=== PATIENT | female | born 1930 | race Caucasian/White ===

== ENCOUNTER 2017-08-09 10:45 | Inpatient (IN) | payer OTHER ==
[2017-08-09] MEDS ORDERED: ALBUTEROL SO4 2.5/IPRATROPIUM 0.5 INH SOL 3 ML VIAL.NEB. NEB ONE (10:50)
--- NOTE | 2017-08-09 11:01 | PDOC ---
History of Present Illness - General Stated Complaint: DIFFICULTY BREATHING Time Seen by Provider: 08/09/17 10:50 - History of Present Illness Initial Comments: 08/09/17 11:12 86 y.o. female with a PMH of CKD, HLD, HTN, Dementia, Bipolar Disorder, Diverticulosis was BIBEMS for respiratory distress from [place]. As per EMS patient saturating in 80's, bradycardic to 40's. NRB administered en route. At presentation VS: BP 224/62, HR 42, RR 26 - patient alert to name, non-verbal. Past History - Past Medical History Allergies/Adverse Reactions: Allergies Allergy/AdvReac Type Severity Reaction Status Date / Time codeine [Codeine] Allergy Verified 08/09/17 10:55 levofloxacin [From Levaquin] Allergy Verified 08/09/17 10:55 pentazocine lactate Allergy Verified 08/09/17 10:55 [From Talwin] Home Medications: Ambulatory Orders Acetaminophen [Tylenol -] 1,000 mg PO BID 08/09/17 Ascorbic Acid [Vitamin C] 500 mg PO DAILY 08/09/17 Calcium Carbonate [Oyster Shell Calcium] 500 mg PO BID 08/09/17 Cholecalciferol (Vitamin D3) [Vitamin D3] 1,000 unit PO DAILY 08/09/17 Divalproex Sodium 250 mg PO TID 08/09/17 Duloxetine HCl 60 mg PO DAILY 08/09/17 FENTANYL 25mcg PATCH [DURAGESIC 25mcg PATCH -] 75 mcg TD Q72D 08/09/17 Levothyroxine [Synthroid -] 50 mcg PO DAILY 08/09/17 Multivit with Minerals No.55 [Centrum Flavor Burst Adult] 1 each PO DAILY Nystatin Ointment [Mycostatin Ointment -] 1 applic TP TID 08/09/17 Omeprazole 40 mg PO DAILY 08/09/17 Polyethylene Glycol 3350 [Miralax (For Daily Use) -] 17 gm PO DAILY 08/09/17 Sennosides [Senna] 2 tab PO HS 08/09/17 CVA: Yes Dementia: Yes HTN: Yes Hypercholesterolemia: Yes - Surgical History Orthopedic Surgery: (ORIF RT ANKLE) - Immunization History Immunization Up to Date: Yes - Suicide/Smoking/Psychosocial Hx Smoking Status: No Smoking History: Never smoked Number of Cigarettes Smoked Daily: 0 Hx Alcohol Use: No Drug/Substance Use Hx: No Substance Use Type: None Review of Systems - Review of Systems Able to Perform ROS?: No *Physical Exam - Physical Exam General Appearance: Yes: Nourished, Obese HEENT: positive: EOMI, AASHISH Neck: positive: Trachea midline, Supple Respiratory/Chest: positive: Rapid RR, Other (Diffuse rales/rhonchi on anterior and posterior lung field) Cardiovascular: positive: S1, S2 Gastrointestinal/Abdominal: positive: Normal Bowel Sounds, Soft Extremity: positive: Normal Capillary Refill, Normal Inspection Integumentary: positive: Other (Stage 3 sacral decubitus ulcers - no appreciable erythema, edema, discharge) Neurologic: positive: Alert ED Treatment Course - LABORATORY CBC & Chemistry Diagram: 08/09/17 11:13 08/09/17 11:13 - RADIOLOGY Radiology Studies Ordered: Category Date Time Status CHEST X-RAY PORTABLE* [RAD] Stat Radiology 08/09/17 10:53 Ordered Medical Decision Making - Medical Decision Making 08/09/17 10:57 86 y.o. female presents from [facility] in respiratory distress. Patient fluid overloaded on PE (diffuse full body edema) will work-up as CHF exacerbation. As per [place] paperwork, patient DNR/DNI 08/09/17 11:09 SpO2 100% on BIPAP. bus driver/monitor shows wide QRS -- suspect Patient remains hypertensive (SBP 200's) and bradycardic 40's). Will give Ca -- suspect patient hyper K 2/2 CKD. Nitro drip initiated for BP. 08/09/17 11:34 Bedside echo shows B/L pleural effusion, no pericardial effusion, patient remains bradycardic with some response to Ca+ HR ranges 30-50. EKG shows HR 44 , diffuse NJ prolongation, flipped inverted T waves in aVL, aVR, poor R wave progession V1-V6. 08/09/17 11:39 Repeat BP 179/56. Patient remains yonatan in 30's -- will decrease nitro drip. Case d/w ICU and Patient's PMD Dr. Rivera. As per Dr. Rivera, patient has h/o bradycardic episodes but no pacemaker placement 2/2 to patient' s age. Patient has been on Hospice x2. 08/09/17 12:27 BP 194/98 -- will keep patient on Nitro drip pending Lasix; BNP 35,000 ( previous BNP 1178 in 2016). 08/09/17 12:37 Patient admitted to ICU. Will continue to monitor while in ED. ABG/VBG pending. Patient verbal - requests water, no active medical complaints. *DC/Admit/Observation/Transfer Diagnosis at time of Disposition: Hyperkalemia - Referrals - Patient Instructions - Post Discharge Activity
[2017-08-09] MEDS ORDERED: CALCIUM CHLORIDE 1 GM/10 ML *DISP.SYRIN IVPUSH ONE (11:06)
[2017-08-09] MEDS ORDERED: NITROGLYCERIN 25MG/D5W 250ML 25 MG/250 ML ML IVPB SCH (11:15)
[2017-08-09] MEDS: ALBUTEROL SO4 2.5/IPRATROPIUM 0.5 INH SOL 3 ML VIAL.NEB. NEB SCH ×4 (11:15→12:05)
[2017-08-09] MEDS ORDERED: CALCIUM CHLORIDE 1 GM/10 ML *DISP.SYRIN ONE ×2 (11:17→12:17)
[2017-08-09] MEDS ORDERED: NITROGLYCERIN 25MG/D5W 250ML 25 MG/250 ML ML IVPB ONE (11:17)
[2017-08-09 11:27] LABS: BASO % 0.7 % (0-2.0); EOS % 1.4 % (0-4.5); HEMATOCRIT 37.7 % (32.4-45.2); HEMOGLOBIN 12.2 GM/dL (10.7-15.3); LYMPH % 13.7 % (8-40); MCHC 32.4 g/dl (32.0-36.0); MEAN CELL VOLUME 95.8 fl (80-96); MEAN PLT VOLUME 7.8 fl (7.5-11.1); MONO % 4.7 % (3.8-10.2); NEUT % 79.5 % (42.8-82.8); PLATELET COUNT 289 K/MM3 (134-434); RBC 3.93 M/mm3 (3.60-5.2); RDW 14.5 % (11.6-15.6); WHITE BLOOD COUNT 7.2 K/mm3 (4.0-10.0)
[2017-08-09] MEDS ORDERED: FUROSEMIDE 40 MG/4 ML INJECTABLE VIAL ONE (11:31)
[2017-08-09] MEDS ORDERED: FUROSEMIDE 40 MG/4 ML INJECTABLE VIAL IVPUSH ONE (11:32)
[2017-08-09] MEDS ORDERED: VANCOMYCIN 1,000 MG in DEXTROSE 5%-WATER - 250 ML IVPB ONE (11:35)
[2017-08-09] MEDS ORDERED: PIPERACILLIN/TAZOB 3.375 GM 50 ML IVPB ONE (11:36)
--- NOTE | 2017-08-09 11:38 | PDOC ---
Attending Attestation - HPI HPI: 08/09/17 11:53 The patient is a 86 year old female, from [facility], with a significant past medical history of hypertension, hyperlipidemia, CVA, dementia, who presents to the emergency department with, shortness of breath. As per EMS, patient has a reported oxygen saturation in the 80s and bradycardic in the 40s bpm. EMS reports administering a NRB en route to the ED. Patient history limited secondary to clinical condition/ dementia. Allergies: codeine, levofloxacin, pentazocine lactate Primary Care Physician: Dr. Rivera Documentation prepared by Roman Perez, acting as medical affairs director for Theresa Prieto DO. - Physicial Exam PE: 08/09/17 11:58 GENERAL: +Moderate respiratory distress. Awake and alert. HEAD: No signs of trauma EYES: PERRLA, EOMI, sclera anicteric, conjunctiva clear ENT: Auricles normal inspection, hearing grossly normal, nares patent, oropharynx clear without exudates. Moist mucosa NECK: Normal ROM, supple, no lymphadenopathy, JVD, or masses LUNGS: +Diffuse rhonchi and rales. HEART: +Bradycardia. Regular rhythm, normal S1 and S2, no murmurs, rubs or gallops ABDOMEN: Soft, nontender, normoactive bowel sounds. No guarding, no rebound. No masses EXTREMITIES: +Diffusely edematous. Normal range of motion. No clubbing or cyanosis. No cords, erythema, or tenderness NEUROLOGICAL: Awake, responds to name. Pleasantly demented. SKIN: Warm, Dry, no rashes or lesions noted. <Roman Perez - Last Filed: 08/09/17 12:26> - Resident Resident Name: Génesis Trejo - ED Attending Attestation I have performed the following: I have examined & evaluated the patient, The case was reviewed & discussed with the resident, I agree w/resident's findings & plan, Exceptions are as noted - Critical Care Time Total Critical Care Time: 45 Critical Care Statement: The care of this patient involved high complexity decision making to prevent further life threatening deterioration of the patient 's condition and/or to evaluate & treat vital organ system(s) failure or risk of failure. - Medical Decision Making 08/09/17 11:38 I, Dr. Theresa Prieto DO, attest that this document has been prepared under my direction and personally reviewed by me in its entirety. I further attest, that it accurately reflects all work, treatment, procedures and medical decision -making performed by me. 08/09/17 11:40 a/p: 86yo female presents from [facility] for eval of resp distress and HTN -pt with rales/rhonchi -concern for new onset CHF -bedside echo shows b/l large pleural effusion with atelectatic lung -yonatan on exam -generalized anasarca -will need lasix, nitro gtt, bipap, admission -Pt from [facility], however PMD Dr. Rivera - call placed to franco -call placed to Eric -Pt with DNR/DNI paperwork on the chart -case discussed with Dr. Reyes - requests consult go to [facility] cards 08/09/17 11:44 case discussed with ANIMAL SHELTER SUPERVISOR Drake Carver from ICU - accepts pt to ICU 08/09/17 11:45 cultures, abx ordered and started 08/09/17 11:45 pt with hx of dementia - unable to provide any hx 08/09/17 12:[address] Rivera - states hx of LIZZY, hx of neurogenic bladder , resp distress hx - yonatan hx - held off on pacer. Pt with hx of being on hospice twice, off hospice at this time 08/09/17 13:02 call placed to [facility] for admission - accepted for admission to ICU <Theresa Prieto - Last Filed: 08/09/17 13:02> Heart Score/ECG Review - ECG Intrepretation Comment:: 08/09/17 11:45 sinus yonatan at 44, 1st degree av block, interventricular conduction delay <Theresa Prieto - Last Filed: 08/09/17 13:02>
[2017-08-09 11:39] LABS: INR 0.97 (0.82-1.09)
[2017-08-09] MEDS ORDERED: PIPERACILLIN/TAZOB 3.375 GM 3.375 GM/50 ML BAG IVPB ONE (11:46)
[2017-08-09 11:54] LABS: ALBUMIN 2.2 g/dl (3.4-5.0); ALK PHOS 133 U/L (45-117); ANION GAP 7 (8-16); BILIRUBIN,TOTAL 0.2 mg/dL (0.2-1.0); BLOOD UREA NITROGEN 54 mg/dL (7-18); CALCIUM 8.3 mg/dL (8.5-10.1); CHLORIDE 108 mmol/L (98-107); CO2 28 mmol/L (21-32); GLUCOSE,RANDOM 142 mg/dL (74-106); POTASSIUM 5.8 mmol/L (3.5-5.1); SGOT/AST 7 U/L (15-37); SGPT/ALT 7 U/L (12-78); SODIUM 143 mmol/L (136-145)
[2017-08-09] MEDS ORDERED: CALCIUM CHLORIDE 1 GM/10 ML *DISP.SYRIN IVPB ONE (12:03)
[2017-08-09] MEDS ORDERED: INSULIN REGULAR HUMAN 100 UNITS/ML *VIAL IVPUSH ONE (12:05)
[2017-08-09] MEDS ORDERED: ALBUTEROL SO4 0.5 % INH SOLN 2.5 MG/0.5 ML VIAL.NEB. NEB ONE (12:07)
[2017-08-09 12:08] LABS: N-TERMINAL BNP 35850.09 pg/ml (5-450)
[2017-08-09] MEDS ORDERED: DEXTROSE 50%-WATER - 25 GM/50 ML VIAL IVPUSH ONE (12:09)
[2017-08-09 12:26] LABS: URINE APPEARANCE TURBID; URINE BILIRUBIN NEGATIVE (<2.0 mg/dL); URINE BLOOD 1+ (NEGATIVE); URINE COLOR YELLOW; URINE GLUCOSE (UA) 1+ (NEGATIVE); URINE KETONE TRACE (NEGATIVE); URINE NITRITE NEGATIVE (NEGATIVE); URINE UROBILINOGEN NEGATIVE mg/dL (0.2-1.0)
[2017-08-09 12:30] LABS: URINE LEUK ESTERASE 2+ (NEGATIVE); URINE PROTEIN 2+ (NEGATIVE)
[2017-08-09 12:32] LABS: EPI CELLS FEW /HPF (FEW); URINE BACTERIA MANY /hpf (NONE SEEN); URINE MUCUS RARE
[2017-08-09] MEDS ORDERED: INSULIN REGULAR HUMAN 100 UNITS/ML *VIAL ONE (12:46)
[2017-08-09] MEDS ORDERED: DEXTROSE 50%-WATER 25 GM/50 ML DISP.SYRIN ONE (12:46)
--- NOTE | 2017-08-09 13:22 | HP ---
CHIEF COMPLAINT: PCP: HISTORY OF PRESENT ILLNESS: 86 year-old [place] female resident with a PMH significant for HTN, HLD, bradycardia/ heart block, NIDDM, seizure disorder, bipolar diosorder, dementia largely bed bound, and chronic sacral wound. Brought to ED by EMS for SOB, O2 sat in 80s, and bradycardic to 40s. In ED, BP 220/104 with pulmonary edema and large bilateral effusions. Started on BiPAP, nitro drip, Lasix given, empiric antibiotics started. Transferred to ICU. ER course was notable for: (1) BP 220/104, HR 40s, 88% on NRB (2) BiPAP, lasix, nitro drip (3) K 5.8 given calcium, insulin, glucose (4) CXR: bilateral effusions with possible basilar infiltrates (5) Vanc x 1; Zosyn x 1 Recent Travel: No PAST MEDICAL HISTORY: Hypertension Hyperlipidemia Bradycardia/Heart Block NIDDM Seizure Disorder Bipolar Disorder Dementia Chronic Sacral Wound PAST SURGICAL HISTORY: ORIF Right Ankle Social History: Smoking: never Alcohol: no Drugs: no Family History: non-contributory Allergies codeine [Codeine] Allergy (Verified 08/09/17 10:55) levofloxacin [From Levaquin] Allergy (Verified 08/09/17 10:55) pentazocine lactate [From Talwin] Allergy (Verified 08/09/17 10:55) HOME MEDICATIONS: Home Medications Medication Instructions Recorded Acetaminophen [Tylenol -] 1,000 mg PO BID 08/09/17 Ascorbic Acid [Vitamin C] 500 mg PO DAILY 08/09/17 Calcium Carbonate [Oyster Shell 500 mg PO BID 08/09/17 Calcium] Cholecalciferol (Vitamin D3) 1,000 unit PO DAILY 08/09/17 [Vitamin D3] Divalproex Sodium 250 mg PO TID 08/09/17 Duloxetine HCl 60 mg PO DAILY 08/09/17 FENTANYL 25mcg PATCH [DURAGESIC 75 mcg TD Q72D 08/09/17 25mcg PATCH -] Levothyroxine [Synthroid -] 50 mcg PO DAILY 08/09/17 Multivit with Minerals No.55 1 each PO DAILY 08/09/17 [Centrum Flavor Burst Adult] Nystatin Ointment [Mycostatin 1 applic TP TID 08/09/17 Ointment -] Omeprazole 40 mg PO DAILY 08/09/17 Polyethylene Glycol 3350 [Miralax 17 gm PO DAILY 08/09/17 (For Daily Use) -] Sennosides [Senna] 2 tab PO HS 08/09/17 REVIEW OF SYSTEMS Unable to obtain due to patient's clinical condition and dementia PHYSICAL EXAMINATION Vital Signs - 24 hr 08/09/17 08/09/17 08/09/17 10:56 11:40 11:50 Temperature Pulse Rate 43 L Pulse Rate [ Apical] Respiratory 26 H Rate Blood Pressure 224/62 Blood Pressure [Left Arm] O2 Sat by Pulse 89 L 100 99 Oximetry (%) 08/09/17 12:42 Temperature 97.8 F Pulse Rate Pulse Rate [ 42 L Apical] Respiratory 22 Rate Blood Pressure Blood Pressure 179/65 [Left Arm] O2 Sat by Pulse 99 Oximetry (%) GENERAL/NEURO: Awake, on BiPAP, turns to voice, does not answer questions. HEAD: Normal with no signs of trauma. EYES: Pupils equal, round and reactive to light LUNGS: Diffuse rales HEART: Regular rate and rhythm, S1, S2 ABDOMEN: Soft, nontender, not distended, normoactive bowel sounds, no guarding, no rebound UPPER EXTREMITIES: 2+ pulses, warm, well-perfused. 3+ edema LOWER EXTREMITIES: 2+ pulses, warm, well-perfused. No calf tenderness. 4+edema Laboratory Results - last 24 hr 08/09/17 08/09/17 08/09/17 11:13 11:13 11:13 WBC 7.2 D RBC 3.93 Hgb 12.2 Hct 37.7 MCV 95.8 MCH 31.0 MCHC 32.4 RDW 14.5 D Plt Count 289 MPV 7.8 Neutrophils % 79.5 Lymphocytes % 13.7 D Monocytes % 4.7 Eosinophils % 1.4 Basophils % 0.7 PT with INR INR Sodium 143 Potassium 5.8 H Chloride 108 H Carbon Dioxide 28 Anion Gap 7 L BUN 54 H Creatinine 2.0 H Creat Clearance w eGFR 23.74 Random Glucose 142 H Lactic Acid 1.3 Calcium 8.3 L Magnesium 2.0 Total Bilirubin 0.2 D AST 7 L ALT 7 L Alkaline Phosphatase 133 H Creatine Kinase Troponin I B-Natriuretic Peptide 62494.09 H Total Protein 6.0 L Albumin 2.2 L Urine Color Urine Appearance Urine pH Ur Specific [place] Urine Protein Urine Glucose (UA) Urine Ketones Urine Blood Urine Nitrite Urine Bilirubin Urine Urobilinogen Ur Leukocyte Esterase Urine WBC (Auto) Urine RBC (Auto) Ur Epithelial Cells Urine Bacteria Urine Mucus Blood Type Antibody Screen 08/09/17 08/09/17 08/09/17 11:14 11:14 11:14 WBC RBC Hgb Hct MCV MCH MCHC RDW Plt Count MPV Neutrophils % Lymphocytes % Monocytes % Eosinophils % Basophils % PT with INR 11.00 INR 0.97 Sodium Potassium Chloride Carbon Dioxide Anion Gap BUN Creatinine Creat Clearance w eGFR Random Glucose Lactic Acid Calcium Magnesium Total Bilirubin AST ALT Alkaline Phosphatase Creatine Kinase 41 Troponin I 0.03 B-Natriuretic Peptide Total Protein Albumin Urine Color Urine Appearance Urine pH Ur Specific [place] Urine Protein Urine Glucose (UA) Urine Ketones Urine Blood Urine Nitrite Urine Bilirubin Urine Urobilinogen Ur Leukocyte Esterase Urine WBC (Auto) Urine RBC (Auto) Ur Epithelial Cells Urine Bacteria Urine Mucus Blood Type B NEGATIVE Antibody Screen Negative 08/09/17 12:10 WBC RBC Hgb Hct MCV MCH MCHC RDW Plt Count MPV Neutrophils % Lymphocytes % Monocytes % Eosinophils % Basophils % PT with INR INR Sodium Potassium Chloride Carbon Dioxide Anion Gap BUN Creatinine Creat Clearance w eGFR Random Glucose Lactic Acid Calcium Magnesium Total Bilirubin AST ALT Alkaline Phosphatase Creatine Kinase Troponin I B-Natriuretic Peptide Total Protein Albumin Urine Color Yellow Urine Appearance Turbid Urine pH 5.0 D Ur Specific [place] 1.025 Urine Protein 2+ H Urine Glucose (UA) 1+ H Urine Ketones Trace H Urine Blood 1+ H Urine Nitrite Negative Urine Bilirubin Negative Urine Urobilinogen Negative Ur Leukocyte Esterase 2+ H Urine WBC (Auto) 991 Urine RBC (Auto) 57 Ur Epithelial Cells Few Urine Bacteria Many Urine Mucus Rare Blood Type Antibody Screen ASSESSMENT/PLAN: 86 year-old [place] female resident with a PMH significant for HTN, HLD, bradycardia/ heart block, NIDDM, seizure disorder, bipolar diosorder, dementia, and chonic sacral wound. Admitted for respiratory failure, hypertensive emergency, acute heart failure. Respiratory failure Pulmonary edema r/o pneumonia --CXR: bilateral pleural effusions with basilar atelectasis v. infiltrates --BiPAP support --Lasix --empiric Zosyn --duonebs Acute heart failure --BNP 35,850, pleural effusions, significant upper and lower extremity edema --Lasix IV 40mg BID --echo ordered --cardiology following Hypertensive emergency --nitro drip --avoid AV merle blocking agents Bradycardia/Heart Block --previous ED admission for complete heart block, sent to [facility]; decision made not to place PPM consitent with goals of care Acute on chronic kidney disease --Cr 2.0 --renal dose meds Hyperkalemia, improved --K 5.89-->5.2 UTI --WBCs 991 --empiric Zosyn NIDDM --A1C pending Seizure disorder --continue depakote Bipolar Disorder Dementia --continue Cymbalta Hypothyroidism --continue levothyroxine --check TSH Dispo: patient has previously been on hospice. Rug Cleaning Supervisor ICE CREAM MACHINE OPERATOR Mehul spoke with HCP Sayra Issa: I was able to speak to Sayra Issa HCP and discussed the case and per previous goals of care discussion patient is DNR/DNI with no aggressive measures: no central lines, thoracentesiss, dialysis, PPM etc. We will cont to medically manage Ms. Garay's medical conditions but should she deteriorate we would focus on comfort. Visit type - Emergency Visit Emergency Visit: Yes ED Registration Date: 08/09/17 Care time: The patient presented to the Emergency Department on the above date and was hospitalized for further evaluation of their emergent condition. - New Patient This patient is new to me today: Yes Date on this admission: 08/10/17 - Critical Care Critical Care patient: Yes Total Critical Care Time (in minutes): 45 Critical Care Statement: The care of this patient involved high complexity decision making to prevent further life threatening deterioration of the patient 's condition and/or to evaluate & treat vital organ system(s) failure or risk of failure. Hospitalist Screening - Colonoscopy Questionnaire Colonoscopy Questionnaire: Colonoscopy Questionnaire - Patient: 50 - 75 years old and never had a screening colonoscopy: No History of colon or rectal polyps, or CA: No History of IBD, Crohn's disease or UC: No History of abdominal radiation therapy as a child: No - Relative: 1 with colon or rectal CA, or polyps at age 60 or younger: Unknown Colon or rectal CA diagnosed at age 45 or younger: Unknown Multiple relatives with colon or rectal CA: Unknown - Outcome: Screening Result: Negative Screen
--- NOTE | 2017-08-09 13:44 | CONSULT ---
Consult Consult Specialty:: CCM/Pulm Reason for Consultation:: Hypertensive emergency, pulmonary edema, hypoxia, LIZZY - History of Present Illness Chief Complaint: hypoxia History of Present Illness: This is a 86 yo demented, largely bed bound NHR with CKD, HLD, HTN who presented to ED for bradycardia (hr 33-40) and hypoxia found to have hypertensive emergency (BP: 220/104) which pulmonary edema and large bilateral effusions. In the ED she initially on NRB w/ sat 88% and she was placed on BiPAP given lasix and nitroglycerin. She received calcium for hyperkalemia. CXR with effusion +/- pneumonia. ABX started for HCAP: zosyn and vanco. Labs significant for SCr 2.0, BNP 35k, (+) u/a: LE. Cardiology was consulted. Patient transferred to ICU for continued care. - History Source History Provided By: Medical Record Limitations to Obtaining History: Dementia - Past Medical History HR CLERK: Yes: Dementia Cardio/Vascular: Yes: HTN Gastrointestinal: Yes: Constipation, Diverticulitis Renal/: Yes: Neurogenic Bladder, UTI Psych: Yes: Bipolar Musculoskeletal: Yes: Chronic low back pain Endocrine: Yes: Diabetes Mellitus - Alcohol/Substance Use Hx Alcohol Use: No - Smoking History Smoking history: Never smoked Have you smoked in the past 12 months: No Aproximately how many cigarettes per day: 0 - Social History Usual Living Arrangement: Jail Home Medications - Allergies Allergies/Adverse Reactions: Allergies Allergy/AdvReac Type Severity Reaction Status Date / Time codeine [Codeine] Allergy Verified 08/09/17 10:55 levofloxacin [From Levaquin] Allergy Verified 08/09/17 10:55 pentazocine lactate Allergy Verified 08/09/17 10:55 [From Talwin] - Home Medications Home Medications: Ambulatory Orders Acetaminophen [Tylenol -] 1,000 mg PO BID 08/09/17 Ascorbic Acid [Vitamin C] 500 mg PO DAILY 08/09/17 Calcium Carbonate [Oyster Shell Calcium] 500 mg PO BID 08/09/17 Cholecalciferol (Vitamin D3) [Vitamin D3] 1,000 unit PO DAILY 08/09/17 Divalproex Sodium 250 mg PO TID 08/09/17 Duloxetine HCl 60 mg PO DAILY 08/09/17 FENTANYL 25mcg PATCH [DURAGESIC 25mcg PATCH -] 75 mcg TD Q72D 08/09/17 Levothyroxine [Synthroid -] 50 mcg PO DAILY 08/09/17 Multivit with Minerals No.55 [Centrum Flavor Burst Adult] 1 each PO DAILY Nystatin Ointment [Mycostatin Ointment -] 1 applic TP TID 08/09/17 Omeprazole 40 mg PO DAILY 08/09/17 Polyethylene Glycol 3350 [Miralax (For Daily Use) -] 17 gm PO DAILY 08/09/17 Sennosides [Senna] 2 tab PO HS 08/09/17 Family Disease History - Family Disease History Family History: Unable to Obtain Review of Systems Unable to obtain ROS, reason: demented Physical Exam Vital Signs: Vital Signs Temperature 97.9 F 08/09/17 13:36 Pulse Rate 46 L 08/09/17 13:36 Respiratory Rate 19 08/09/17 13:36 Blood Pressure 166/60 08/09/17 13:36 O2 Sat by Pulse Oximetry (%) 100 08/09/17 13:36 Current Medications Furosemide (Lasix -) 40 mg PO BID@0600,1400 YAKOV Heparin Sodium (Porcine) (Heparin -) 5,000 unit SQ Q8H-IV YAKOV Nitroglycerin/Dextrose (Nitroglycerin 25mg/D5w 250ml) 25 mg in 250 mls @ 6 mls/ hr IVPB TITR YAKOV PRN Reason: 10 MCG/MIN Last Admin: 08/09/17 11:20 Dose: 10 mcg/min, 6 mls/hr Constitutional: Yes: Mild Distress Eyes: Yes: Conjunctiva Clear, PERRL Cardiovascular: Yes: Bradycardia, S1, S2 Respiratory: Yes: Diminished, Rales Gastrointestinal: Yes: Normal Bowel Sounds, Soft, Abdomen, Obese ...Rectal Exam: Yes: Deferred Renal/: Yes: Davis Present Edema: LUE: 3+, RUE: 3+, LLE: 4+, RLE: 4+ Neurological: Yes: Confusion Labs: CBC, BMP 08/09/17 11:13 08/09/17 11:13 Imaging - Results Chest X-ray: Report Reviewed, Image Reviewed (effusion +/- consolidation w/ PVC) Problem List - Problems (1) Altered mental status Code(s): R41.82 - ALTERED MENTAL STATUS, UNSPECIFIED (2) Hypertensive emergency Code(s): I16.1 - HYPERTENSIVE EMERGENCY (3) CKD (chronic kidney disease) Code(s): N18.9 - CHRONIC KIDNEY DISEASE, UNSPECIFIED (4) Dementia Code(s): F03.90 - UNSPECIFIED DEMENTIA WITHOUT BEHAVIORAL DISTURBANCE (5) Acute respiratory failure with hypoxia Code(s): J96.01 - ACUTE RESPIRATORY FAILURE WITH HYPOXIA Assessment/Plan 86 yo woman with advanced dementia, DNR/DNI who presented with hypertensive emergency requiring nitroglycerin drip and NIPPV c/c/b LIZZY likely pre-renal r/t CHF and UTI. -BiPAP for respiratory support given pulmonary edema -O2 for sat >90% -Lasix for O>I -Cardiology consulted -cont nitro for goal SBP <180, will transition to oral regimen roz -will use hydralazine for now and avoid beta blockers given bradycardia -patient would likely benefit for therapeutic thoracentesis if not responding to lasix and in lines with goals of care -Renal dose all medications -cont ABX for possible HCAP and UTI -f/u culture date -UFH sq for prophylaxis -patient previously on hospice care, will attempt to call family to discuss GO Boerem ACNP Pulm/CCM CCT: 35m I was able to speak to Sayra Issa HCP and discussed the case and per previous goals of care discussion patient is DNR/DNI with no aggressive measures: in central lines, thoracentesiss, dialysis, PPM ect. We will cont to medically manage Ms. Garay's medical conditions but should she deteriorate we would focus on comfort. Boerem ACNP
[2017-08-09] MEDS ORDERED: FUROSEMIDE 40 MG TABLET (FP) PO SCH (14:00)
[2017-08-09] MEDS ORDERED: PIPERACILLIN/TAZOB 3.375 GM 3.375 GM in DEXTROSE 5%-WATER - 50 ML IVPB SCH (14:15)
[2017-08-09 16:11] VITALS: BMI 33.0
[2017-08-09 16:38] LABS: ANION GAP 8 (8-16); BLOOD UREA NITROGEN 56 mg/dL (7-18); CHLORIDE 109 mmol/L (98-107); CO2 26 mmol/L (21-32); GLUCOSE,RANDOM 111 mg/dL (74-106); POTASSIUM 5.2 mmol/L (3.5-5.1); SODIUM 143 mmol/L (136-145)
[2017-08-09] MEDS: HEPARIN NA (PORCINE) 5,000 UNITS/ML 1ML VIAL SQ SCH (17:21)
--- NOTE | 2017-08-09 17:44 | CON.CARD ---
Consult Consult Specialty:: Cardiology Consult Reason for Consultation:: Hypertensive urgency - History of Present Illness History of Present Illness: This is an 86 year old female with a PMH of CKD, HLD, HTN, Dementia, Bipolar Disorder, and Diverticulosis. [facility]. She was noted by EMS to be aturating in 80's, bradycardic to 40's. At presentation VS: BP 224/62, HR 42, RR 26 - patient alert to name, but disoriented. - Past Medical History [employer]: Yes: Dementia Cardio/Vascular: Yes: HTN Gastrointestinal: Yes: Constipation, Diverticulitis Renal/: Yes: Neurogenic Bladder, UTI ...: No Psych: Yes: Bipolar Musculoskeletal: Yes: Chronic low back pain Endocrine: Yes: Diabetes Mellitus - Alcohol/Substance Use Hx Alcohol Use: No - Smoking History Smoking history: Never smoked Have you smoked in the past 12 months: No Aproximately how many cigarettes per day: 0 - Social History Usual Living Arrangement: Snf Home Medications - Allergies Allergies/Adverse Reactions: Allergies Allergy/AdvReac Type Severity Reaction Status Date / Time codeine [Codeine] Allergy Verified 08/09/17 10:55 levofloxacin [From Levaquin] Allergy Verified 08/09/17 10:55 pentazocine lactate Allergy Verified 08/09/17 10:55 [From Talwin] - Home Medications Home Medications: Ambulatory Orders Acetaminophen [Tylenol -] 1,000 mg PO BID 08/09/17 Ascorbic Acid [Vitamin C] 500 mg PO DAILY 08/09/17 Calcium Carbonate [Oyster Shell Calcium] 500 mg PO BID 08/09/17 Cholecalciferol (Vitamin D3) [Vitamin D3] 1,000 unit PO DAILY 08/09/17 Divalproex Sodium 250 mg PO TID 08/09/17 Duloxetine HCl 60 mg PO DAILY 08/09/17 FENTANYL 25mcg PATCH [DURAGESIC 25mcg PATCH -] 75 mcg TD Q72D 08/09/17 Levothyroxine [Synthroid -] 50 mcg PO DAILY 08/09/17 Multivit with Minerals No.55 [Centrum Flavor Burst Adult] 1 each PO DAILY Nystatin Ointment [Mycostatin Ointment -] 1 applic TP TID 08/09/17 Omeprazole 40 mg PO DAILY 08/09/17 Polyethylene Glycol 3350 [Miralax (For Daily Use) -] 17 gm PO DAILY 08/09/17 Sennosides [Senna] 2 tab PO HS 08/09/17 Review of Systems Findings/Remarks: As per HPI Vital Signs: Vital Signs Temperature 98.2 F 08/09/17 16:01 Pulse Rate 38 L 08/09/17 16:36 Respiratory Rate 16 08/09/17 16:36 Blood Pressure 153/46 08/09/17 16:36 O2 Sat by Pulse Oximetry (%) 96 08/09/17 16:36 Constitutional: Yes: Anxious HENT: Yes: WNL Neck: Yes: WNL Respiratory: Yes: CTA Bilaterally, Other (Difficult to examine, uncooperative) Gastrointestinal: Yes: Soft Cardiovascular: Yes: Regular Rate and Rhythm (NL S1S2 no MRHG) Edema: LLE: Trace, RLE: Trace Neurological: Yes: Other (Disorented Anxious) - Other Data Labs, Other Data: CBC, BMP 08/09/17 11:13 08/09/17 15:55 INR, PTT INR 0.97 (0.82-1.09) 08/09/17 11:14 Troponin, BNP 08/09/17 08/09/17 11:13 11:14 Troponin I 0.03 B-Natriuretic Peptide 08138.09 H Troponin, BNP 08/09/17 08/09/17 11:13 11:14 Troponin I 0.03 B-Natriuretic Peptide 66735.09 H Assessment/Plan Hypertensive Urgency BP currently 153/46 mmHg - would not add additional BP agents at this ti Would give Lasix 40 mg IVSS q12h, given the elevated BNP Obtain an echocardiogram Bradycardia EKG has a poor baseline but may be in 2:1 heart block Avoid all AV merle slowing drugs Check TFT's May require a PPM if the bradycardia doesn't resolve but would also consider clarifying the advance directives given her significant dementia.
[2017-08-09] MEDS ORDERED: PIPERACIL/TAZOB 3.375 GM 3.375 GM/50 ML PREMIX IVPB SCH (18:00)
[2017-08-09] MEDS ORDERED: PT OWN MED DRAWER 7, Y5N ONE (18:41)
[2017-08-09] MEDS: PIPERACILLIN/TAZOB 3.375 GM 3.375 GM in DEXTROSE 5%-WATER - 50 ML IVPB SCH (19:00)
[2017-08-09 19:09] LABS: VENOUS PH 7.2 (7.32-7.42)
--- NOTE | 2017-08-09 21:21 | EKG ---
Test Reason : Blood Pressure : / mmHG Vent. Rate : 044 BPM Atrial Rate : 102 BPM P-R Int : 000 ms QRS Dur : 130 ms QT Int : 466 ms P-R-T Axes : 000 087 -38 degrees QTc Int : 398 ms UNDETERMINED RHYTHM , POOR QUALITY EKG SECONDARY TO UNDULATING BASELINE ARTIFACT--PLEASE REPEAT EKG NON-SPECIFIC INTRA-VENTRICULAR CONDUCTION BLOCK CANNOT RULE OUT ANTERIOR INFARCT , AGE UNDETERMINED ABNORMAL ECG WHEN COMPARED WITH ECG OF 23-MAR-2016 12:58, CURRENT UNDETERMINED RHYTHM PRECLUDES RHYTHM COMPARISON, NEEDS REVIEW Confirmed by POLLY KLINE MD ([id number]) on 08/09/2017 9:20:50 PM Referred By: Confirmed By:POLLY KLINE MD
[2017-08-10] MEDS: PIPERACILLIN/TAZOB 3.375 GM 3.375 GM in DEXTROSE 5%-WATER - 50 ML IVPB SCH ×2 (02:00→09:56)
[2017-08-10] MEDS: HEPARIN NA (PORCINE) 5,000 UNITS/ML 1ML VIAL SQ SCH ×3 (02:00→18:07)
[2017-08-10] MEDS ORDERED: fentaNYL 25mcg/hr PATCH.TD72 TD SCH (05:15)
[2017-08-10] MEDS ORDERED: ALBUTEROL SO4 2.5/IPRATROPIUM 0.5 INH SOL 3 ML VIAL.NEB. NEB PRN (05:29)
[2017-08-10] MEDS ORDERED: FUROSEMIDE 40 MG/4 ML INJECTABLE VIAL ONE (05:32)
[2017-08-10] MEDS: DIVALPROEX SODIUM 250 MG TABLET E.C. PO SCH ×3 (05:37→22:00)
[2017-08-10] MEDS: FUROSEMIDE 40 MG/4 ML INJECTABLE VIAL IVPB SCH ×2 (05:37→13:58)
--- NOTE | 2017-08-10 06:21 | PN ---
Progress Note, Physician Chief Complaint: 86 y.o [facility] resident was sent to [facility] ER due to SOB, generalized edema, bradicardia, low O2SAT. In the ER was found to be in acute CHF and the patient was admitted to ICU In ICU remains on BIPAP, low BP, bradicardic, confused. History of Present Illness: Dementia. Bipolar disorder. Neurogenic bladder.Chronic moderate CKD. HTN DM type 2 Frequent uti. Chronic stage 4 sacral decub Diverticulitis. RBBB. Bradicardia- - Current Medication List Current Medications: Active Medications Albuterol/Ipratropium (Duoneb -) 1 amp NEB Q6H PRN PRN Reason: SHORTNESS OF BREATH Divalproex Sodium (Depakote -) 250 mg PO TID [facility] Last Admin: 08/10/17 05:37 Dose: 250 mg Duloxetine HCl (Cymbalta -) 60 mg PO DAILY [facility] Fentanyl (Duragesic 75mcg Patch -) 1 patch TD Q72H [facility] Furosemide (Lasix Injection -) 40 mg IVPB BID@0600,1400 [facility] Last Admin: 08/10/17 05:37 Dose: 40 mg Heparin Sodium (Porcine) (Heparin -) 5,000 unit SQ Q8H-IV [facility] Last Admin: 08/10/17 02:00 Dose: 5,000 unit Nitroglycerin/Dextrose (Nitroglycerin 25mg/D5w 250ml) 25 mg in 250 mls @ 6 mls/ hr IVPB TITR [facility] PRN Reason: 10 MCG/MIN Last Titration: 08/09/17 14:25 Dose: 5 mcg/min, 3 mls/hr Piperacillin Sod/Tazobactam (Sod 3.375 gm/ Dextrose) 50 mls @ 100 mls/hr IVPB Q8H-IV [facility] Stop: 08/10/17 17:59 Last Admin: 08/10/17 02:00 Dose: 100 mls/hr Levothyroxine Sodium (Synthroid -) 50 mcg PO DAILY@0700 [facility] Miscellaneous (Duragesic Patch Waste) 1 each TD PRN PRN PRN Reason: PATCH REMOVAL Nystatin (Mycostatin Ointment -) 1 applic TP TID [facility] Pantoprazole Sodium (Protonix -) 40 mg PO DAILY [facility] Piperacillin/Tazobactam/Dextrose (Zosyn 3.375gm Ivpb (Premix)) 3.375 gm IVPB Q8H-IV [facility] Polyethylene Glycol (Miralax (For Daily Use) -) 17 gm PO DAILY [facility] Senna (Senna -) 2 tab PO HS [facility] - Objective Vital Signs: Vital Signs Temperature 97.8 F 08/10/17 02:00 Pulse Rate 38 L 08/10/17 04:00 Respiratory Rate 20 08/10/17 04:00 Blood Pressure 114/78 08/10/17 04:00 O2 Sat by Pulse Oximetry (%) 100 08/10/17 02:17 Constitutional: Yes: Anxious, Severe Distress, Obese Eyes: Yes: Conjunctiva Clear, EOM Intact HENT: Yes: Atraumatic, Normocephalic Neck: Yes: Supple, Trachea Midline. No: Decreased ROM, Lymphadenopathy Cardiovascular: Yes: Bradycardia, Pulse Irregular, Murmur, S1, S2, S3. No: Tachycardia, JVD Respiratory: Yes: Regular, CTA Bilaterally (decreased B/B), On BiPap, SOB Gastrointestinal: Yes: Normal Bowel Sounds, Soft, Abdomen, Obese. No: Ascites, Distention, Splenomegaly, Tenderness, Vomiting ...Rectal Exam: Yes: Deferred Extremities: No: Calf Tenderness, Cold, Cyanosis Edema: Yes Edema: LLE: 3+, RLE: 3+ Peripheral Pulses WNL: No Integumentary: Yes: Pressure Ulcer (sacrum stage 4) Neurological: Yes: Alert. No: Oriented, Aphasia, Seizure, Unresponsive Psychiatric: Yes: Alert. No: Oriented, Agitated, Suicidal Ideation Labs: CBC, BMP 08/09/17 11:13 08/09/17 15:55 INR, PTT INR 0.97 (0.82-1.09) 08/09/17 11:14 Problem List - Problems (1) Acute respiratory failure with hypoxia Assessment/Plan: Acute CHF on chronic CHF causing Acute respiratory failure Continue with IV diuretics, follow CXR Code(s): J96.01 - ACUTE RESPIRATORY FAILURE WITH HYPOXIA (2) Hyperkalemia Assessment/Plan: Follow K and lytes-expected to normalize with IV Lasix. Code(s): E87.5 - HYPERKALEMIA (3) CRI (chronic renal insufficiency) Assessment/Plan: ARF on chronic Davis-good UA output Follow BUN/Cr Code(s): N18.9 - CHRONIC KIDNEY DISEASE, UNSPECIFIED Qualifiers: Chronic kidney disease stage: stage 3 (moderate) Qualified Code(s): N18.3 - Chronic kidney disease, stage 3 (moderate) (4) Bradycardia Assessment/Plan: Continue telemetry repeat EKG-previously deemed to be a poor candidate for PPM due to Dementia, and was on Hospice previously Code(s): R00.1 - BRADYCARDIA, UNSPECIFIED (5) Stage 4 pressure ulcer Assessment/Plan: Collagen dressing QD and PRN Code(s): L89.94 - PRESSURE ULCER OF UNSPECIFIED SITE, STAGE 4 Qualifiers: Pressure ulcer location: sacral region Qualified Code(s): L89.154 - Pressure ulcer of sacral region, stage 4
[2017-08-10 06:31] LABS: BASO % 0.8 % (0-2.0); EOS % 1.3 % (0-4.5); HEMATOCRIT 31.7 % (32.4-45.2); HEMOGLOBIN 10.4 GM/dL (10.7-15.3); MCH 31.3 pg (25.7-33.7); MCHC 32.7 g/dl (32.0-36.0); MEAN CELL VOLUME 95.7 fl (80-96); MEAN PLT VOLUME 8.2 fl (7.5-11.1); MONO % 9.4 % (3.8-10.2); NEUT % 75.5 % (42.8-82.8); PLATELET COUNT 248 K/MM3 (134-434); RBC 3.31 M/mm3 (3.60-5.2); RDW 14.5 % (11.6-15.6); WHITE BLOOD COUNT 7.2 K/mm3 (4.0-10.0)
[2017-08-10] MEDS: LEVOTHYROXINE NA 50 MCG TABLET (FP) PO SCH (06:36)
[2017-08-10 06:57] LABS: PROTHROMBIN TIME (PATIENT) 11.3 SEC (9.98-11.88)
[2017-08-10 07:00] LABS: ACTIVATED PTT 29.4 SECONDS (26.9-34.4)
[2017-08-10] MEDS: NYSTATIN 100000 UNIT/GM TOPICAL OINTMENT 15 GM TUBE TP SCH ×3 (07:11→22:03)
[2017-08-10 07:56] LABS: ALBUMIN 1.9 g/dl (3.4-5.0); ALK PHOS 107 U/L (45-117); ANION GAP 6 (8-16); BILIRUBIN,TOTAL 0.2 mg/dL (0.2-1.0); BLOOD UREA NITROGEN 55 mg/dL (7-18); CALCIUM 8.8 mg/dL (8.5-10.1); CHLORIDE 111 mmol/L (98-107); CO2 28 mmol/L (21-32); CREATININE 2.1 mg/dL (0.55-1.02); GLUCOSE,RANDOM 94 mg/dL (74-106); MAGNESIUM 1.8 mg/dL (1.8-2.4); PHOSPHOROUS 4.1 mg/dL (2.5-4.9); POTASSIUM 5.6 mmol/L (3.5-5.1); SGOT/AST 8 U/L (15-37); SGPT/ALT < 6 U/L (12-78); SODIUM 145 mmol/L (136-145)
[2017-08-10] MEDS ORDERED: PT OWN MED DRAWER 7, Y5N ONE ×2 (08:24→18:05)
--- NOTE | 2017-08-10 09:00 | PN ---
Progress Note (short form) - Note Progress Note: ID Full note dictated and discussed with PMD Assessment Worsening CHF no sepsis or PNA Plan No indication for antibiotics Laron ESTRELLA Problem List - Problems (1) Congestive heart failure Code(s): I50.9 - HEART FAILURE, UNSPECIFIED (2) Bradycardia Code(s): R00.1 - BRADYCARDIA, UNSPECIFIED (3) Stage 4 pressure ulcer Code(s): L89.94 - PRESSURE ULCER OF UNSPECIFIED SITE, STAGE 4 Qualifiers: Pressure ulcer location: sacral region Qualified Code(s): L89.154 - Pressure ulcer of sacral region, stage 4
--- NOTE | 2017-08-10 09:26 | CONS ---
DATE OF CONSULTATION: HISTORY: This is an 86[facility]year-old [facility] female from [facility] with a history significant for hypertension, bradycardia with heart block, cjy-bvygpxh-ebzfffmnj diabetes, seizure disorder, dementia largely bed bound, chronic sacral wound, and bipolar disorder. She was [facility] the [facility] for shortness of breath and hypoxemia with oxygen saturation in the 80s and a bradycardia to 40. Clinically her blood pressure was found to be 220/104, and she was felt to be in pulmonary edema with large bilateral effusions. She was given Lasix, nitroglycerin drip, and transferred to the ICU. I am asked to see her now as she was initially given empiric antibiotics for possible pneumonia and sepsis. The patient has been afebrile while here. Her blood cultures thus far are no growth. PAST MEDICAL HISTORY: As noted above. MEDICATIONS: At home include calcium, vitamin D, fentanyl patch, levothyroxine, omeprazole. ALLERGIES: LEVAQUIN, CODEINE, and TALWIN. SOCIAL HISTORY: No drugs or alcohol. snf resident. FAMILY HISTORY: Unobtainable. REVIEW OF SYSTEMS: Respiratory: Positive shortness of breath. No cough or hemoptysis. Cardiac: No history of chest pain, palpitations, murmur. Gastrointestinal: No abdominal pain, vomiting, diarrhea. Genitourinary: Incontinent of urine. PHYSICAL EXAMINATION: General: Reveals an elderly woman who does not respond to verbal stimuli. She appears in no acute distress. Vital Signs: Her temperature is 98.2. The vital signs are pulse 33, blood pressure 90/46, respirations 18. Neck: Supple. Trachea midline. Lungs: Bilateral breath sounds diminished. Heart: S1, S2. Bradycardic. Irregular. No audible murmur. Abdomen: Normoactive bowel sound. Soft, nontender. No distention or organomegaly. Extremities: With 3+ lower extremity edema. LABORATORY DATA: White count 7.2, hemoglobin 10.4, platelets 248, BUN 55, creatinine 2.1. Liver enzymes within normal limits. Troponin 0.03. Urinalysis with 2+ leukocyte esterase, 981 WBCs, 57 RBCs. Cultures of blood and urine currently pending. Blood cultures negative thus far. Chest x-ray shows pulmonary edema with bilateral effusions. ASSESSMENT: An 86-year-old female with refractory congestive heart failure admitted with exacerbation. No evidence of sepsis. Noted to be bradycardic with a stage 4 pressure ulcer. PLAN: At this point, based on her mental status, conservative management seems appropriate. Urinalysis is notable for pyuria. I will give her ceftriaxone pending urine culture to treat UTI. Discontinue Zosyn. SEUN MORROW M.D. [id number]
[2017-08-10] MEDS: POLYETHYLENE GLYCOL 3350 119 GM BTL PO SCH (09:57)
[2017-08-10] MEDS: PANTOPRAZOLE 40 MG TABLET (FP) PO SCH (09:58)
[2017-08-10] MEDS: DULoxetine HCL 30 MG CAPSULE.DR (FP) PO SCH (09:58)
[2017-08-10] MEDS ORDERED: FENTANYL PATCH WASTE TD PRN (10:00)
[2017-08-10] MEDS ORDERED: fentaNYL 75mcg/hr PATCH.TD72 TD SCH (10:00)
[2017-08-10] MEDS ORDERED: SODIUM POLYSTYRENE SULFONATE 15 GM/60 ML BOTTLE PO ONE (10:30)
[2017-08-10] MEDS ORDERED: cefTRIAXone SODIUM 1 GM VIAL ONE (11:08)
[2017-08-10] MEDS ORDERED: DEXTROSE 5%-WATER - 50 ML IVPB ONE (11:08)
[2017-08-10] MEDS: CEFTRIAXONE 1 GM in DEXTROSE 5%-WATER - 50 ML IVPB SCH (11:14)
--- NOTE | 2017-08-10 11:26 | PN ---
Progress Note, Physician Chief Complaint: Heart block on tele History of Present Illness: This is an 86 year old female with a PMH of CKD, HLD, HTN, Dementia, Bipolar Disorder, and Diverticulosis. [facility] She was noted by EMS to be aturating in 80's, bradycardic to 40's. At presentation VS: BP 224/62, HR 42, RR 26 - patient alert to name, but disoriented. - Current Medication List Current Medications: Active Medications Albuterol/Ipratropium (Duoneb -) 1 amp NEB Q6H PRN PRN Reason: SHORTNESS OF BREATH Divalproex Sodium (Depakote -) 250 mg PO TID [facility] Last Admin: 08/10/17 05:37 Dose: 250 mg Duloxetine HCl (Cymbalta -) 60 mg PO DAILY [facility] Last Admin: 08/10/17 09:58 Dose: 60 mg Fentanyl (Duragesic 75mcg Patch -) 1 patch TD Q72H [facility] Last Admin: 08/10/17 09:58 Dose: 1 patch Furosemide (Lasix Injection -) 40 mg IVPB BID@0600,1400 [facility] Last Admin: 08/10/17 05:37 Dose: 40 mg Heparin Sodium (Porcine) (Heparin -) 5,000 unit SQ Q8H-IV [facility] Last Admin: 08/10/17 09:57 Dose: 5,000 unit Nitroglycerin/Dextrose (Nitroglycerin 25mg/D5w 250ml) 25 mg in 250 mls @ 6 mls/ hr IVPB TITR [facility] PRN Reason: 10 MCG/MIN Last Titration: 08/10/17 07:00 Dose: 0 mcg/min, 0 mls/hr Piperacillin Sod/Tazobactam (Sod 3.375 gm/ Dextrose) 50 mls @ 100 mls/hr IVPB Q8H-IV [facility] Stop: 08/10/17 17:59 Last Admin: 08/10/17 09:56 Dose: 100 mls/hr Ceftriaxone Sodium 1 gm/ (Dextrose) 50 mls @ 100 mls/hr IVPB DAILY [facility] Last Admin: 08/10/17 11:14 Dose: 100 mls/hr Levothyroxine Sodium (Synthroid -) 50 mcg PO DAILY@0700 [facility] Last Admin: 08/10/17 06:36 Dose: 50 mcg Miscellaneous (Duragesic Patch Waste) 1 each TD PRN PRN PRN Reason: PATCH REMOVAL Nystatin (Mycostatin Ointment -) 1 applic TP TID [facility] Last Admin: 08/10/17 07:11 Dose: Not Given Pantoprazole Sodium (Protonix -) 40 mg PO DAILY [facility] Last Admin: 08/10/17 09:58 Dose: 40 mg Polyethylene Glycol (Miralax (For Daily Use) -) 17 gm PO DAILY [facility] Last Admin: 08/10/17 09:57 Dose: 17 g Senna (Senna -) 2 tab PO HS [facility] - Objective Vital Signs: Vital Signs Temperature 97.7 F 08/10/17 10:00 Pulse Rate 33 L 08/10/17 10:00 Respiratory Rate 16 08/10/17 10:00 Blood Pressure 128/62 08/10/17 10:00 O2 Sat by Pulse Oximetry (%) 99 08/10/17 08:15 Constitutional: Yes: No Distress Cardiovascular: Yes: Bradycardia, S1, S2. No: JVD, Murmur Respiratory: Yes: CTA Bilaterally Edema: LLE: 1+, RLE: 1+ Labs: CBC, BMP 08/10/17 05:20 08/10/17 05:20 INR, PTT INR 1.00 (0.82-1.09) 08/10/17 05:20 Problem List - Problems (1) Bradycardia Code(s): R00.1 - BRADYCARDIA, UNSPECIFIED Assessment/Plan This is an 86 year old female with a PMH of CKD, HLD, HTN, Dementia, Bipolar Disorder, and Diverticulosis. [facility]. She was noted by EMS to be aturating in 80's, bradycardic and hypertensive 1) CHF -plan for echocardiogram Diuresing with furosemide 40mg IV q12 Monitor I/O's and lytes and treat K as needed 2) Bradycardia In heart block on tele Old ekgs in 2016 with bradycardia and AV dissociation. Would clarify with family goals of care. Appears in notes in past no ppm done given advanced dementia Will continue to monitor vitals and HR and re-discuss goals of care with family No av merle blocking agents off bp meds at this time TSH normal Abx as per primary team
--- NOTE | 2017-08-10 14:01 | PN ---
Teaching Attending Note Name of Resident: Justin Mcmillan ATTENDING PHYSICIAN STATEMENT I saw and evaluated the patient. I reviewed the resident's note and discussed the case with the resident. I agree with the resident's findings and plan as documented. SUBJECTIVE: Pt seen and examined in the ICU. Appears to be in slow afib/flutter this AM with ventricular rate 30-40s. Denies shortness of breath or chest pain. OBJECTIVE: Last Vital Signs Temp Pulse Resp BP Pulse Ox 98.7 F 34 L 18 134/72 99 08/10/17 12:00 08/10/17 12:00 08/10/17 12:00 08/10/17 12:00 08/10/17 09:00 Intake & Output 08/07/17 08/08/17 08/09/17 08/10/17 23:59 23:59 23:59 23:59 Intake Total 12 162 Output Total 850 1200 Balance -838 -1038 Weight 95.844 kg 95.436 kg Gen: NAD at rest Heart: bradycardic, regular Lung: decreased breath sounds at the bases Abd: soft, nontender Ext: + edema CBC, BMP 08/10/17 05:20 08/10/17 05:20 Active Medications Albuterol/Ipratropium (Duoneb -) 1 amp NEB Q6H PRN PRN Reason: SHORTNESS OF BREATH Divalproex Sodium (Depakote -) 250 mg PO TID [facility] Last Admin: 08/10/17 13:58 Dose: 250 mg Duloxetine HCl (Cymbalta -) 60 mg PO DAILY [facility] Last Admin: 08/10/17 09:58 Dose: 60 mg Fentanyl (Duragesic 75mcg Patch -) 1 patch TD Q72H [facility] Last Admin: 08/10/17 09:58 Dose: 1 patch Furosemide (Lasix Injection -) 40 mg IVPB BID@0600,1400 [facility] Last Admin: 08/10/17 13:58 Dose: 40 mg Heparin Sodium (Porcine) (Heparin -) 5,000 unit SQ Q8H-IV [facility] Last Admin: 08/10/17 09:57 Dose: 5,000 unit Nitroglycerin/Dextrose (Nitroglycerin 25mg/D5w 250ml) 25 mg in 250 mls @ 6 mls/ hr IVPB TITR [facility] PRN Reason: 10 MCG/MIN Last Titration: 08/10/17 07:00 Dose: 0 mcg/min, 0 mls/hr Piperacillin Sod/Tazobactam (Sod 3.375 gm/ Dextrose) 50 mls @ 100 mls/hr IVPB Q8H-IV [facility] Stop: 08/10/17 17:59 Last Admin: 08/10/17 09:56 Dose: 100 mls/hr Ceftriaxone Sodium 1 gm/ (Dextrose) 50 mls @ 100 mls/hr IVPB DAILY [facility] Last Admin: 08/10/17 11:14 Dose: 100 mls/hr Levothyroxine Sodium (Synthroid -) 50 mcg PO DAILY@0700 [facility] Last Admin: 08/10/17 06:36 Dose: 50 mcg Miscellaneous (Duragesic Patch Waste) 1 each TD PRN PRN PRN Reason: PATCH REMOVAL Nystatin (Mycostatin Ointment -) 1 applic TP TID [facility] Last Admin: 08/10/17 13:59 Dose: 1 applic Pantoprazole Sodium (Protonix -) 40 mg PO DAILY [facility] Last Admin: 08/10/17 09:58 Dose: 40 mg Polyethylene Glycol (Miralax (For Daily Use) -) 17 gm PO DAILY [facility] Last Admin: 08/10/17 09:57 Dose: 17 g Senna (Senna -) 2 tab PO [facility] ASSESSMENT AND PLAN: Acute Hypoxic and Hypercapneic Respiratory Failure Bradycardia AV Block Hypertensive Urgency Acute Pulmonary Edema Acute Kidney Injury UTI Hyperkalemia - IV lasix - monitor urine output, creatinine - O2 to keep SpO2 >90% - BiPAP as needed - off nitro gtt - echocardiogram - continue antibiotics - f/u cultures - kayexalate - monitor lytes - hold all rate controlling agents - telemetry monitoring - clarify goals of care critical care time spent in reviewing chart, evaluating patient and formulating plan 35 min
--- NOTE | 2017-08-10 14:43 | EKG ---
Test Reason : Blood Pressure : / mmHG Vent. Rate : 035 BPM Atrial Rate : 258 BPM P-R Int : 000 ms QRS Dur : 112 ms QT Int : 584 ms P-R-T Axes : 102 -33 089 degrees QTc Int : 445 ms ATRIAL FIBRILLATION WITH SLOW VENTRICULAR RESPONSE LEFT AXIS DEVIATION INCOMPLETE RIGHT BUNDLE BRANCH BLOCK ABNORMAL ECG WHEN COMPARED WITH ECG OF 09-AUG-2017 10:50, INCOMPLETE RIGHT BUNDLE BRANCH BLOCK HAS REPLACED NON-SPECIFIC INTRA-VENTRICULAR CONDUCTION BLOCK MINIMAL CRITERIA FOR ANTERIOR INFARCT ARE NO LONGER PRESENT Confirmed by MARCELLE GALVAN MD ([id number]) on 08/10/2017 2:42:46 PM Referred By: Confirmed By:MARCELLE GALVAN MD
--- NOTE | 2017-08-10 14:52 | PN ---
Physical Exam: SUBJECTIVE: Briefly, 86yo F with history of AV block, severe dementia, CKD, HTN, DM2, bipolar disease, and chronic sacral decubitus stage IV ulcer who presented to the ER originally for SOB and hypoxia to 80s. In the ED they were found to be bradycardic to 40bpm, hypertensive to 220/104 with bilateral pleural effusions. Pt was started on BiPap and nitro gtt and was sent to the ICU. As of this morning pt has been off of her nitro gtt and has had stable normotensive blood pressure, however remains bradycardic to 30bpm. Previously the HCP was contacted and it was stated that the pt is DNR/DNI without any advanced measures including central lines, pressors, etc. Currently pt remains oriented only to self and HPI is limited. Pt reports no pain and feels good right now. Pt continues to have some laborous breathing, however unchanged from previous settings. OBJECTIVE: Vital Signs Period Temp Pulse Resp BP Sys/Houser Pulse Ox Last 24 Hr 97.7 F-98.7 F 30-40 16-26 90-166/44-78 96-100 GENERAL: Mild distress, laying in bed, awake, alert, oriented x1 HEENT: NC/AT, EOMI, WALDO, No JVD, moist mucosa, sclera anicteric LUNGS: Shallow and tachypneic, upper airway transmitted sounds and diminished breath sounds at bases b/l, otherwise CTA, no accessory muscle use on 2LNC 100% SpO2 HEART: Bradycardic with regular rhythm, S1, S2 without murmur ABDOMEN: Soft, nontender, nondistended, normoactive bowel sounds, no guarding, no hepatomegaly EXTREMITIES: 2+ DP pulses, warm, well-perfused, 2+ pitting edema in feet with 1 + up to mid lower extremity SKIN: Warm, dry, no rashes or lesions noted Laboratory Results - last 24 hr 08/09/17 08/10/17 08/10/17 19:30 05:20 05:20 WBC 7.2 RBC 3.31 L Hgb 10.4 L D Hct 31.7 L D MCV 95.7 MCH 31.3 MCHC 32.7 RDW 14.5 Plt Count 248 MPV 8.2 Neutrophils % 75.5 Lymphocytes % 13.0 Monocytes % 9.4 D Eosinophils % 1.3 Basophils % 0.8 PT with INR INR PTT (Actin FS) VBG pH POC VBG pCO2 POC VBG pO2 Mixed VBG HCO3 Carboxyhemoglobin Methemoglobin Sodium Potassium Chloride Carbon Dioxide Anion Gap BUN Creatinine Creat Clearance w eGFR Random Glucose Hemoglobin A1c % Calcium Phosphorus Magnesium Total Bilirubin AST ALT Alkaline Phosphatase Troponin I 0.03 Total Protein Albumin Vitamin B12 TSH Random Vancomycin 9.507 08/10/17 08/10/17 05:20 05:20 WBC RBC Hgb Hct MCV MCH MCHC RDW Plt Count MPV Neutrophils % Lymphocytes % Monocytes % Eosinophils % Basophils % PT with INR 11.30 INR 1.00 PTT (Actin FS) 29.4 VBG pH POC VBG pCO2 POC VBG pO2 Mixed VBG HCO3 Carboxyhemoglobin Methemoglobin Sodium 145 Potassium 5.6 H Chloride 111 H Carbon Dioxide 28 Anion Gap 6 L BUN 55 H Creatinine 2.1 H Creat Clearance w eGFR 22.44 Random Glucose 94 Hemoglobin A1c % Calcium 8.8 Phosphorus 4.1 Magnesium 1.8 Total Bilirubin 0.2 AST 8 L ALT < 6 L Alkaline Phosphatase 107 Troponin I Total Protein 5.0 L Albumin 1.9 L Vitamin B12 TSH Random Vancomycin TSH 2.76 Active Medications Generic Name Dose Route Start Last Admin Trade Name Freq PRN Reason Stop Dose Admin Albuterol/Ipratropium 1 amp 08/10/17 05:29 Duoneb - NEB Q6H PRN SHORTNESS OF BREATH Divalproex Sodium 250 mg 08/10/17 06:00 08/10/17 13:58 Depakote - PO 250 mg TID YAKOV Administration Duloxetine HCl 60 mg 08/10/17 10:00 08/10/17 09:58 Cymbalta - PO 60 mg DAILY YAKOV Administration Fentanyl 1 patch 08/10/17 10:00 08/10/17 09:58 Duragesic 75mcg Patch - TD 1 patch Q72H YAKOV Administration Furosemide 40 mg 08/10/17 06:00 08/10/17 13:58 Lasix Injection - IVPB 40 mg BID@0600,1400 YAKOV Administration Heparin Sodium (Porcine) 5,000 unit 08/09/17 18:00 08/10/17 09:57 Heparin - SQ 5,000 unit Q8H-IV YAKOV Administration Nitroglycerin/Dextrose 25 mg in 250 mls @ 6 mls/hr 08/09/17 11:15 03/26/18 07 :00 Nitroglycerin 25mg/D5w 250ml IVPB 0 mcg/min TITR YAKOV 0 mls/hr 10 MCG/MIN Titration Piperacillin Sod/Tazobactam 50 mls @ 100 mls/hr 08/09/17 18:00 08/10/17 09:56 Sod 3.375 gm/ Dextrose IVPB 08/10/17 17:59 100 mls/hr Q8H-IV YAKOV Administration Ceftriaxone Sodium 1 gm/ 50 mls @ 100 mls/hr 08/10/17 10:00 08/10/17 11:14 Dextrose IVPB 100 mls/hr DAILY YAKOV Administration Levothyroxine Sodium 50 mcg 08/10/17 07:00 08/10/17 06:36 Synthroid - PO 50 mcg DAILY@0700 YAKOV Administration Miscellaneous 1 each 08/10/17 10:00 Duragesic Patch Waste TD PRN PRN PATCH REMOVAL Nystatin 1 applic 08/10/17 06:00 08/10/17 13:59 Mycostatin Ointment - TP 1 applic TID YAKOV Administration Pantoprazole Sodium 40 mg 08/10/17 10:00 08/10/17 09:58 Protonix - PO 40 mg DAILY YAKOV Administration Polyethylene Glycol 17 gm 08/10/17 10:00 08/10/17 09:57 Miralax (For Daily Use) - PO 17 g DAILY YAKOV Administration Senna 2 tab 08/10/17 22:00 Senna - PO HS YAKOV ASSESSMENT/PLAN: Neuro: Advanced dementia --Currently at baseline Respiratory: Currently not in distress Maintain SpO2 >90% Duoneb PRN for shortness of breath if needed Previous acute pulmonary edema resolving --Follow plan as below and monitor CXR Cardiovascular: High grade Type II AV block --Bradycardic to high 30's bpm --Stable blood pressures currently --Cardiology on board --Spoke to HCP about clarification of GOC for PPM device placement; seems to agree now compared to the previous 2 times --Call placed to Dr. Gupta's service about change in GOC from previous; awaiting call back for discussion about PPM and transfer or call with HCP about change in GOC --Hold beta-blocking medications due to bradycardia --EKG today showing similar High grade type II AV block, however additionally in possible slow flutter? Acute heart failure with volume overload --Continue BiPap as needed --Lasix 40 IVP BID --Maintain samayoa for accurate I&O's --Echocardiogram pending Hypertensive Emergency --Resolved --Currently off of nitro gtt --Continue to monitor BP Renal: Not in renal failure ID: UTI --Zosyn day 2 today --F/u cultures; urine and blood --Tylenol PRN for fevers FEN: Fluids: avoid due to overload Electrolyte abnormalities: Hyperkalemia (given kayexalate) Nutrition: If pt to receive PPM today keep NPO; otherwise advance PPX DVT - Heparin SQ Dispo: pending discussion of ppm Case discussed with Dr. Dwight Mcmillan, DO - IM PGY-1 Visit type - Emergency Visit Emergency Visit: No - New Patient This patient is new to me today: No - Critical Care Critical Care patient: Yes Total Critical Care Time (in minutes): 35 Critical Care Statement: The care of this patient involved high complexity decision making to prevent further life threatening deterioration of the patient 's condition and/or to evaluate & treat vital organ system(s) failure or risk of failure.
--- NOTE | 2017-08-10 17:41 | PN ---
Progress Note (short form) - Note Progress Note: Spoke to Cardiology, Dr. Gupta, and explained that patient's family agreed to a pacemaker. Dr. Gupta reports that he will speak to the family once again and explain the procedure with risks and benefits in the morning. Reports that patient has had bradycardia as far back as 2015. If family agrees and signs consent, will likely transfer to [facility] tomorrow for pacemaker placement. Patient currently in HTN urgency. Dr. Gupta recommended CCB such as amlodipine. Amlodipine 5mg PO daily ordered. Will titrate up to 10mg if patients BP is not well controlled. Will add hydralizine for second line if needed. Eileen Worthy MD PGY-2
[2017-08-10] MEDS: amLODIPine BESYLATE 5 MG TABLET (FP) PO SCH (18:07)
[2017-08-10] MEDS ORDERED: ALPRAZolam 0.25 MG TABLET PO ONE (21:48)
[2017-08-10] MEDS ORDERED: SENNOSIDES 8.6MG TABLET (FP) PO SCH (22:00)
[2017-08-11] MEDS: HEPARIN NA (PORCINE) 5,000 UNITS/ML 1ML VIAL SQ SCH ×3 (01:55→17:33)
--- NOTE | 2017-08-11 05:53 | PN ---
Physical Exam: SUBJECTIVE: No acute events overnight. Pt reports not complaints at this time remains jovial. Denies dizziness/lightheadedness, SOB, CP/discomfort, palpitations, abdominal pain. OBJECTIVE: Vital Signs Period Temp Pulse Resp BP Sys/Houser Pulse Ox Last 24 Hr 97.7 F-98.7 F 33-49 16-20 90-162/44-115 98-99 GENERAL: NAD, laying in bed, awake, alert, oriented x1 HEENT: NC/AT, WALDO, No JVD, dry mucosa with cracked lips, poor dentition, sclera anicteric LUNGS: Upper airway transmitted sounds and diminished breath sounds at bases b/l , otherwise CTA, no accessory muscle use on 2LNC HEART: Bradycardic with regular rhythm, S1, S2 without murmur ABDOMEN: Soft, nontender, nondistended, normoactive bowel sounds, no guarding, no hepatomegaly EXTREMITIES: 2+ DP pulses, warm, well-perfused, 1+ pitting edema noted in lower extremities SKIN: Warm, dry, no rashes or lesions noted Laboratory Results - last 24 hr 08/10/17 08/10/17 08/10/17 05:20 05:20 05:20 WBC 7.2 RBC 3.31 L Hgb 10.4 L D Hct 31.7 L D MCV 95.7 MCH 31.3 MCHC 32.7 RDW 14.5 Plt Count 248 MPV 8.2 Neutrophils % 75.5 Lymphocytes % 13.0 Monocytes % 9.4 D Eosinophils % 1.3 Basophils % 0.8 PT with INR 11.30 INR 1.00 PTT (Actin FS) 29.4 Sodium Potassium Chloride Carbon Dioxide Anion Gap BUN Creatinine Creat Clearance w eGFR Random Glucose Hemoglobin A1c % Calcium Phosphorus Magnesium Total Bilirubin AST ALT Alkaline Phosphatase Total Protein Albumin Vitamin B12 TSH Random Vancomycin 9.507 08/10/17 08/10/17 08/10/17 05:20 05:20 05:20 WBC RBC Hgb Hct MCV MCH MCHC RDW Plt Count MPV Neutrophils % Lymphocytes % Monocytes % Eosinophils % Basophils % PT with INR INR PTT (Actin FS) Sodium 145 Potassium 5.6 H Chloride 111 H Carbon Dioxide 28 Anion Gap 6 L BUN 55 H Creatinine 2.1 H Creat Clearance w eGFR 22.44 Random Glucose 94 Hemoglobin A1c % 5.6 Calcium 8.8 Phosphorus 4.1 Magnesium 1.8 Total Bilirubin 0.2 AST 8 L ALT < 6 L Alkaline Phosphatase 107 Total Protein 5.0 L Albumin 1.9 L Vitamin B12 TSH 2.76 Random Vancomycin 08/10/17 05:20 WBC RBC Hgb Hct MCV MCH MCHC RDW Plt Count MPV Neutrophils % Lymphocytes % Monocytes % Eosinophils % Basophils % PT with INR INR PTT (Actin FS) Sodium Potassium Chloride Carbon Dioxide Anion Gap BUN Creatinine Creat Clearance w eGFR Random Glucose Hemoglobin A1c % Calcium Phosphorus Magnesium Total Bilirubin AST ALT Alkaline Phosphatase Total Protein Albumin Vitamin B12 698 TSH Random Vancomycin Active Medications Generic Name Dose Route Start Last Admin Trade Name Freq PRN Reason Stop Dose Admin Albuterol/Ipratropium 1 amp 08/10/17 05:29 Duoneb - NEB Q6H PRN SHORTNESS OF BREATH Amlodipine Besylate 5 mg 08/10/17 17:45 08/10/17 18:07 Norvasc - PO 5 mg DAILY YAKOV Administration Divalproex Sodium 250 mg 08/10/17 06:00 08/10/17 22:00 Depakote - PO 250 mg TID YAKOV Administration Duloxetine HCl 60 mg 08/10/17 10:00 08/10/17 09:58 Cymbalta - PO 60 mg DAILY YAKOV Administration Fentanyl 1 patch 08/10/17 10:00 08/10/17 09:58 Duragesic 75mcg Patch - TD 1 patch Q72H YAKOV Administration Furosemide 40 mg 08/10/17 06:00 08/10/17 13:58 Lasix Injection - IVPB 40 mg BID@0600,1400 YAKOV Administration Heparin Sodium (Porcine) 5,000 unit 08/09/17 18:00 08/11/17 01:55 Heparin - SQ 5,000 unit Q8H-IV YAKOV Administration Nitroglycerin/Dextrose 25 mg in 250 mls @ 6 mls/hr 08/09/17 11:15 08/10/17 07 :00 Nitroglycerin 25mg/D5w 250ml IVPB 0 mcg/min TITR YAKOV 0 mls/hr 10 MCG/MIN Titration Ceftriaxone Sodium 1 gm/ 50 mls @ 100 mls/hr 08/10/17 10:00 08/10/17 11:14 Dextrose IVPB 100 mls/hr DAILY YAKOV Administration Levothyroxine Sodium 50 mcg 08/10/17 07:00 03/26/18 06:36 Synthroid - PO 50 mcg DAILY@0700 YAKOV Administration Miscellaneous 1 each 08/10/17 10:00 Duragesic Patch Waste TD PRN PRN PATCH REMOVAL Nystatin 1 applic 08/10/17 06:00 08/10/17 22:03 Mycostatin Ointment - TP 1 applic TID YAKOV Administration Pantoprazole Sodium 40 mg 08/10/17 10:00 08/10/17 09:58 Protonix - PO 40 mg DAILY YAKOV Administration Polyethylene Glycol 17 gm 08/10/17 10:00 08/10/17 09:57 Miralax (For Daily Use) - PO 17 g DAILY YAKOV Administration Senna 2 tab 08/10/17 22:00 08/10/17 21:59 Senna - PO Not Given HS YAKOV ASSESSMENT/PLAN: Neuro: Advanced dementia --Currently at baseline Respiratory: Currently not in distress Maintain SpO2 >90% Duoneb PRN for shortness of breath if needed Previous acute pulmonary edema resolving --Follow plan as below --CXR ordered for today will f/u Cardiovascular: High grade Type II AV block --Bradycardic to high 30's bpm; BP remains stable --Cardiology on board --Hold beta-blocking medications due to bradycardia --Awaiting next steps per cardiology if PPM is warranted Acute heart failure with volume overload --Continue BiPap as needed --Lasix 40 IVP BID --Maintain samayoa for accurate I&O's --Echocardiogram pending Hypertensive Emergency --Resolved --Currently off of nitro gtt --Continue to monitor BP --Pt received norvasc 5mg PO due to increasing pressures last afternoon with appropriate response --Continue Norvasc 5mg PO Renal: Not in renal failure ID: UTI --Rocephin 1gm currently --F/u cultures; urine and blood --Tylenol PRN for fevers FEN: Fluids: avoid due to overload Electrolyte abnormalities: HypoMg (repleted with MgOx 400mg Once) Nutrition: If pt to receive PPM today keep NPO; otherwise continue advanced diet PPX DVT - Heparin SQ Dispo: Transfer to tele Case discussed with Dr. Dwight Mcmillan, DO - IM PGY-1 Visit type - Emergency Visit Emergency Visit: No - New Patient This patient is new to me today: No - Critical Care Critical Care patient: No
[2017-08-11] MEDS: DIVALPROEX SODIUM 250 MG TABLET E.C. PO SCH ×3 (06:14→21:25)
[2017-08-11] MEDS: FUROSEMIDE 40 MG/4 ML INJECTABLE VIAL IVPB SCH ×2 (06:14→16:10)
[2017-08-11] MEDS: NYSTATIN 100000 UNIT/GM TOPICAL OINTMENT 15 GM TUBE TP SCH ×3 (06:15→21:25)
[2017-08-11 07:07] LABS: BASO % 0.9 % (0-2.0); EOS % 2.8 % (0-4.5); HEMATOCRIT 31.8 % (32.4-45.2); HEMOGLOBIN 10.5 GM/dL (10.7-15.3); LYMPH % 10.8 % (8-40); MCHC 32.9 g/dl (32.0-36.0); MEAN CELL VOLUME 94.2 fl (80-96); MEAN PLT VOLUME 8.2 fl (7.5-11.1); MONO % 10.1 % (3.8-10.2); NEUT % 75.4 % (42.8-82.8); PLATELET COUNT 253 K/MM3 (134-434); RBC 3.37 M/mm3 (3.60-5.2); WHITE BLOOD COUNT 7.5 K/mm3 (4.0-10.0)
[2017-08-11 07:19] LABS: ALBUMIN 1.9 g/dl (3.4-5.0); ANION GAP 8 (8-16); BILIRUBIN,TOTAL 0.1 mg/dL (0.2-1.0); BLOOD UREA NITROGEN 50 mg/dL (7-18); CALCIUM 7.6 mg/dL (8.5-10.1); CHLORIDE 111 mmol/L (98-107); CO2 27 mmol/L (21-32); CREATININE 2.1 mg/dL (0.55-1.02); GLUCOSE,RANDOM 130 mg/dL (74-106); MAGNESIUM 1.7 mg/dL (1.8-2.4); PHOSPHOROUS 4.3 mg/dL (2.5-4.9); POTASSIUM 4.4 mmol/L (3.5-5.1); SGOT/AST 8 U/L (15-37); SGPT/ALT 9 U/L (12-78); SODIUM 146 mmol/L (136-145); TOT PROT 5.1 g/dl (6.4-8.2)
[2017-08-11 07:27] LABS: ALK PHOS 106 U/L (45-117)
[2017-08-11] MEDS ORDERED: MAGNESIUM OXIDE 400 MG TABLET (FP) PO ONE (09:00)
[2017-08-11] MEDS ORDERED: cefTRIAXone SODIUM 1 GM VIAL ONE (09:41)
[2017-08-11] MEDS ORDERED: DEXTROSE 5%-WATER - 50 ML IVPB ONE (09:42)
--- NOTE | 2017-08-11 09:49 | PN ---
Progress Note, Physician History of Present Illness: Minimal pt input secondary to advanced dementia. Pt w/o CP, abd pain. Pt was seen and evaluated in ICU. - Current Medication List Current Medications: Active Medications Albuterol/Ipratropium (Duoneb -) 1 amp NEB Q6H PRN PRN Reason: SHORTNESS OF BREATH Amlodipine Besylate (Norvasc -) 5 mg PO DAILY [facility] Last Admin: 08/10/17 18:07 Dose: 5 mg Divalproex Sodium (Depakote -) 250 mg PO TID [facility] Last Admin: 08/11/17 06:14 Dose: 250 mg Duloxetine HCl (Cymbalta -) 60 mg PO DAILY [facility] Last Admin: 08/10/17 09:58 Dose: 60 mg Fentanyl (Duragesic 75mcg Patch -) 1 patch TD Q72H [facility] Last Admin: 08/10/17 09:58 Dose: 1 patch Furosemide (Lasix Injection -) 40 mg IVPB BID@0600,1400 [facility] Last Admin: 08/11/17 06:14 Dose: 40 mg Heparin Sodium (Porcine) (Heparin -) 5,000 unit SQ Q8H-IV [facility] Last Admin: 08/11/17 01:55 Dose: 5,000 unit Ceftriaxone Sodium 1 gm/ (Dextrose) 50 mls @ 100 mls/hr IVPB DAILY [facility] Last Admin: 08/10/17 11:14 Dose: 100 mls/hr Levothyroxine Sodium (Synthroid -) 50 mcg PO DAILY@0700 [facility] Last Admin: 08/10/17 06:36 Dose: 50 mcg Miscellaneous (Duragesic Patch Waste) 1 each TD PRN PRN PRN Reason: PATCH REMOVAL Nystatin (Mycostatin Ointment -) 1 applic TP TID [facility] Last Admin: 08/11/17 06:15 Dose: 1 applic Pantoprazole Sodium (Protonix -) 40 mg PO DAILY [facility] Last Admin: 08/10/17 09:58 Dose: 40 mg Polyethylene Glycol (Miralax (For Daily Use) -) 17 gm PO DAILY [facility] Last Admin: 08/10/17 09:57 Dose: 17 g Senna (Senna -) 2 tab PO HS [facility] Last Admin: 08/10/17 21:59 Dose: Not Given - Objective Vital Signs: Vital Signs Temperature 98.6 F 08/11/17 06:00 Pulse Rate 42 L 08/11/17 08:00 Respiratory Rate 20 08/11/17 09:00 Blood Pressure 166/64 08/11/17 08:00 O2 Sat by Pulse Oximetry (%) 98 08/10/17 20:38 Constitutional: Yes: No Distress, Anxious Cardiovascular: Yes: Regular Rate and Rhythm, Bradycardia, S1, S2 Respiratory: Yes: Regular. No: Rales (but pt doesn't cooperate with examination ) Gastrointestinal: Yes: Normal Bowel Sounds, Soft. No: Tenderness Edema: LLE: 2+, RLE: 2+ Neurological: Yes: Alert Labs: CBC, BMP 08/11/17 05:20 08/11/17 05:20 INR, PTT INR 1.00 (0.82-1.09) 08/10/17 05:20 Problem List - Problems (1) Acute respiratory failure with hypoxia and hypercapnia Code(s): J96.01 - ACUTE RESPIRATORY FAILURE WITH HYPOXIA; J96.02 - ACUTE RESPIRATORY FAILURE WITH HYPERCAPNIA (2) Bradycardia Code(s): R00.1 - BRADYCARDIA, UNSPECIFIED (3) Hyperkalemia Code(s): E87.5 - HYPERKALEMIA (4) Heart failure Code(s): I50.9 - HEART FAILURE, UNSPECIFIED (5) Dementia Code(s): F03.90 - UNSPECIFIED DEMENTIA WITHOUT BEHAVIORAL DISTURBANCE (6) CRI (chronic renal insufficiency) Code(s): N18.9 - CHRONIC KIDNEY DISEASE, UNSPECIFIED Qualifiers: Chronic kidney disease stage: stage 3 (moderate) Qualified Code(s): N18.3 - Chronic kidney disease, stage 3 (moderate) (7) UTI (urinary tract infection) Code(s): N39.0 - URINARY TRACT INFECTION, SITE NOT SPECIFIED (8) Stage 4 pressure ulcer Code(s): L89.94 - PRESSURE ULCER OF UNSPECIFIED SITE, STAGE 4 Qualifiers: Pressure ulcer location: sacral region Qualified Code(s): L89.154 - Pressure ulcer of sacral region, stage 4 (9) Anxiety Code(s): F41.9 - ANXIETY DISORDER, UNSPECIFIED Assessment/Plan IV Lasix IV Ceftriaxone. Monitor I/O( negative), creatinine (stable). CCM, Cardio, ID consults appreciated. Pt might need PPM. PRN Xanax for anxiety Case was d/w pt's nurse (Marquis). Covering Dr. Rivera. Time spent for managing pt's care: over 40 minutes
[2017-08-11] MEDS: PANTOPRAZOLE 40 MG TABLET (FP) PO SCH (10:02)
[2017-08-11] MEDS: amLODIPine BESYLATE 5 MG TABLET (FP) PO SCH (10:02)
[2017-08-11] MEDS: DULoxetine HCL 30 MG CAPSULE.DR (FP) PO SCH (10:02)
[2017-08-11] MEDS: LEVOTHYROXINE NA 50 MCG TABLET (FP) PO SCH (10:02)
[2017-08-11] MEDS: POLYETHYLENE GLYCOL 3350 119 GM BTL PO SCH (10:03)
[2017-08-11] MEDS: CEFTRIAXONE 1 GM in DEXTROSE 5%-WATER - 50 ML IVPB SCH (10:04)
[2017-08-11] MEDS ORDERED: ALPRAZolam 0.25 MG TABLET PO PRN ×2 (10:20→19:18)
--- NOTE | 2017-08-11 11:35 | PN ---
Teaching Attending Note Name of Resident: Justin Mcmillan ATTENDING PHYSICIAN STATEMENT I saw and evaluated the patient. I reviewed the resident's note and discussed the case with the resident. I agree with the resident's findings and plan as documented. SUBJECTIVE: Pt seen and examined in the ICU. Remains bradycardic. Not answering questions to me but apparently was talking to house staff earlier. OBJECTIVE: Last Vital Signs Temp Pulse Resp BP Pulse Ox 98.5 F 43 L 20 179/78 98 08/11/17 10:00 08/11/17 10:00 08/11/17 10:00 08/11/17 10:00 08/10/17 20:38 Intake & Output 08/08/17 08/09/17 08/10/17 08/11/17 23:59 23:59 23:59 23:59 Intake Total 12 602 Output Total 850 1750 400 Balance -838 -1148 -400 Weight 95.844 kg 95.436 kg 90.7 kg Gen: mildly tachypneic at rest Heart: bradycardic, regular Lung: scattered rales Abd: soft, nontender Ext: + edema CBC, BMP 08/11/17 05:20 08/11/17 05:20 Active Medications Albuterol/Ipratropium (Duoneb -) 1 amp NEB Q6H PRN PRN Reason: SHORTNESS OF BREATH Alprazolam (Xanax -) 0.25 mg PO BID PRN PRN Reason: ANXIETY Amlodipine Besylate (Norvasc -) 5 mg PO DAILY [facility] Last Admin: 08/11/17 10:02 Dose: 5 mg Divalproex Sodium (Depakote -) 250 mg PO TID [facility] Last Admin: 08/11/17 06:14 Dose: 250 mg Duloxetine HCl (Cymbalta -) 60 mg PO DAILY [facility] Last Admin: 08/11/17 10:02 Dose: 60 mg Fentanyl (Duragesic 75mcg Patch -) 1 patch TD Q72H [facility] Last Admin: 08/10/17 09:58 Dose: 1 patch Furosemide (Lasix Injection -) 40 mg IVPB BID@0600,1400 [facility] Last Admin: 08/11/17 06:14 Dose: 40 mg Heparin Sodium (Porcine) (Heparin -) 5,000 unit SQ Q8H-IV [facility] Last Admin: 08/11/17 10:03 Dose: 5,000 unit Ceftriaxone Sodium 1 gm/ (Dextrose) 50 mls @ 100 mls/hr IVPB DAILY [facility] Last Admin: 08/11/17 10:04 Dose: 100 mls/hr Levothyroxine Sodium (Synthroid -) 50 mcg PO DAILY@0700 [facility] Last Admin: 08/11/17 10:02 Dose: 50 mcg Miscellaneous (Duragesic Patch Waste) 1 each TD PRN PRN PRN Reason: PATCH REMOVAL Nystatin (Mycostatin Ointment -) 1 applic TP TID [facility] Last Admin: 08/11/17 06:15 Dose: 1 applic Pantoprazole Sodium (Protonix -) 40 mg PO DAILY [facility] Last Admin: 08/11/17 10:02 Dose: 40 mg Polyethylene Glycol (Miralax (For Daily Use) -) 17 gm PO DAILY [facility] Last Admin: 08/11/17 10:03 Dose: 17 g Senna (Senna -) 2 tab PO HS [facility] Last Admin: 08/10/17 21:59 Dose: Not Given ASSESSMENT AND PLAN: Acute Hypoxic and Hypercapneic Respiratory Failure Bradycardia AV Block Hypertensive Urgency Acute Pulmonary Edema Acute Kidney Injury UTI Hyperkalemia - IV lasix - monitor urine output, creatinine - O2 to keep SpO2 >90% - BiPAP as needed - continue antibiotics - f/u cultures - monitor lytes - hold all rate controlling agents - clarify goals of care, upon review of chart pt has been documented to be bradycardic to 30-40s in May 2015 - can monitor on telemetry critical care time spent in reviewing chart, evaluating patient and formulating plan 35 min
--- NOTE | 2017-08-11 14:27 | PN ---
Progress Note, Physician Chief Complaint: More alert today diuresing History of Present Illness: This is an 86 year old female with a PMH of CKD, HLD, HTN, Dementia, Bipolar Disorder, and Diverticulosis. [facility] distress. She was noted by EMS to be aturating in 80's, bradycardic to 40's. At presentation VS: BP 224/62, HR 42, RR 26 - patient alert to name, but disoriented. - Current Medication List Current Medications: Active Medications Albuterol/Ipratropium (Duoneb -) 1 amp NEB Q6H PRN PRN Reason: SHORTNESS OF BREATH Alprazolam (Xanax -) 0.25 mg PO BID PRN PRN Reason: ANXIETY Amlodipine Besylate (Norvasc -) 5 mg PO DAILY [facility] Last Admin: 08/11/17 10:02 Dose: 5 mg Divalproex Sodium (Depakote -) 250 mg PO TID [facility] Last Admin: 08/11/17 06:14 Dose: 250 mg Duloxetine HCl (Cymbalta -) 60 mg PO DAILY [facility] Last Admin: 08/11/17 10:02 Dose: 60 mg Fentanyl (Duragesic 75mcg Patch -) 1 patch TD Q72H [facility] Last Admin: 08/10/17 09:58 Dose: 1 patch Furosemide (Lasix Injection -) 40 mg IVPB BID@0600,1400 [facility] Last Admin: 08/11/17 06:14 Dose: 40 mg Heparin Sodium (Porcine) (Heparin -) 5,000 unit SQ Q8H-IV [facility] Last Admin: 08/11/17 10:03 Dose: 5,000 unit Ceftriaxone Sodium 1 gm/ (Dextrose) 50 mls @ 100 mls/hr IVPB DAILY [facility] Last Admin: 08/11/17 10:04 Dose: 100 mls/hr Levothyroxine Sodium (Synthroid -) 50 mcg PO DAILY@0700 [facility] Last Admin: 08/11/17 10:02 Dose: 50 mcg Miscellaneous (Duragesic Patch Waste) 1 each TD PRN PRN PRN Reason: PATCH REMOVAL Nystatin (Mycostatin Ointment -) 1 applic TP TID [facility] Last Admin: 08/11/17 06:15 Dose: 1 applic Pantoprazole Sodium (Protonix -) 40 mg PO DAILY [facility] Last Admin: 08/11/17 10:02 Dose: 40 mg Polyethylene Glycol (Miralax (For Daily Use) -) 17 gm PO DAILY [facility] Last Admin: 08/11/17 10:03 Dose: 17 g Senna (Senna -) 2 tab PO HS [facility] Last Admin: 08/10/17 21:59 Dose: Not Given - Objective Vital Signs: Vital Signs Temperature 98.5 F 08/11/17 10:00 Pulse Rate 45 L 08/11/17 12:00 Respiratory Rate 20 08/11/17 12:00 Blood Pressure 183/55 08/11/17 12:00 O2 Sat by Pulse Oximetry (%) 98 08/10/17 20:38 Constitutional: Yes: No Distress Neck: Yes: Supple Cardiovascular: Yes: Bradycardia, JVD, S1, S2 Respiratory: Yes: Diminished Edema: LLE: 1+, RLE: 1+ Labs: CBC, BMP 08/11/17 05:20 08/11/17 05:20 INR, PTT INR 1.00 (0.82-1.09) 08/10/17 05:20 Problem List - Problems (1) Bradycardia Code(s): R00.1 - BRADYCARDIA, UNSPECIFIED Assessment/Plan This is an 86 year old female with a PMH of CKD, HLD, HTN, Dementia, Bipolar Disorder, and Diverticulosis. [facility]. She was noted by EMS to be aturating in 80's, bradycardic and hypertensive 1) CHF -Diuresing with furosemide 40mg IV q12 Monitor I/O's and lytes and treat K as needed. K improved today 2) Bradycardia Will continue to monitor Stable with htn Has been yonatan since 2016 In heart block on tele No av merle blocking agents TSH normal Increase amlodipine for better bp control Abx as per primary team
--- NOTE | 2017-08-11 16:53 | EKG ---
Test Reason : Blood Pressure : / mmHG Vent. Rate : 043 BPM Atrial Rate : 048 BPM P-R Int : 000 ms QRS Dur : 126 ms QT Int : 608 ms P-R-T Axes : 000 -40 099 degrees QTc Int : 513 ms WIDE QRS RHYTHM LEFT AXIS DEVIATION RIGHT BUNDLE BRANCH BLOCK ABNORMAL ECG WHEN COMPARED WITH ECG OF 10-AUG-2017 08:22, WIDE QRS RHYTHM HAS REPLACED ATRIAL FIBRILLATION Confirmed by MD Candy, Aol ([id number]) on 08/11/2017 4:52:53 PM Referred By: Confirmed By:Alo Gupta MD
[2017-08-11] MEDS ORDERED: ALBUTEROL SO4 2.5/IPRATROPIUM 0.5 INH SOL 3 ML VIAL.NEB. NEB PRN (19:18)
[2017-08-11] MEDS ORDERED: FENTANYL PATCH WASTE MC PRN (19:18)
[2017-08-11] MEDS ORDERED: FENTANYL PATCH WASTE TD PRN (19:18)
[2017-08-11] MEDS: SENNOSIDES 8.6MG TABLET (FP) PO SCH (21:25)
[2017-08-11] MEDS ORDERED: amLODIPine BESYLATE 5 MG TABLET (FP) PO ONE (23:30)
[2017-08-12] MEDS: HEPARIN NA (PORCINE) 5,000 UNITS/ML 1ML VIAL SQ SCH ×3 (01:06→17:51)
--- NOTE | 2017-08-12 05:49 | PN ---
Physical Exam: SUBJECTIVE: No acute events overnight. No events on monitor noted. Pt noted to be less lucid during my examination and rounds with Dr. Quintanilla. Otherwise pt continues to be alert to name. OBJECTIVE: Vital Signs Period Temp Pulse Resp BP Sys/Houser Pulse Ox Last 24 Hr 97.7 F-98.8 F 41-48 18-20 137-183/46-100 GENERAL: NAD, laying in bed, awake, alert, oriented x1 HEENT: NC/AT, WALDO, No JVD, dry-moist mucosa with cracked lips, sclera anicteric LUNGS: Upper airway transmitted sounds and diminished breath sounds at bases b/l , otherwise CTA, no accessory muscle use on 2LNC HEART: Bradycardic with regular rhythm (bradycardia improved to mid 40's to low 50's), S1, S2 without murmur ABDOMEN: Soft, nontender, nondistended, normoactive bowel sounds, no guarding, no hepatomegaly EXTREMITIES: 2+ DP pulses, warm, well-perfused, 2+ pitting edema noted in lower extremities SKIN: Warm, dry, no rashes or lesions noted Laboratory Results - last 24 hr 08/11/17 08/11/17 08/11/17 05:20 05:20 05:20 WBC 7.5 RBC 3.37 L Hgb 10.5 L Hct 31.8 L MCV 94.2 MCH 31.0 MCHC 32.9 RDW 14.0 Plt Count 253 MPV 8.2 Neutrophils % 75.4 Lymphocytes % 10.8 Monocytes % 10.1 Eosinophils % 2.8 D Basophils % 0.9 Sodium 146 H Potassium 4.4 Chloride 111 H Carbon Dioxide 27 Anion Gap 8 BUN 50 H Creatinine 2.1 H Creat Clearance w eGFR 22.44 Random Glucose 130 H Calcium 7.6 L Phosphorus 4.3 Magnesium 1.7 L Total Bilirubin 0.1 L D AST 8 L ALT 9 L Alkaline Phosphatase 106 Total Protein 5.1 L Albumin 1.9 L TSH 3.63 Free T4 0.98 Active Medications Generic Name Dose Route Start Last Admin Trade Name Freq PRN Reason Stop Dose Admin Albuterol/Ipratropium 1 amp 08/11/17 19:18 Duoneb - NEB Q6H PRN SHORTNESS OF BREATH Alprazolam 0.25 mg 08/11/17 19:18 03/27/18 22:38 Xanax - PO 0.25 mg BID PRN Administration ANXIETY Amlodipine Besylate 5 mg 08/12/17 10:00 Norvasc - PO DAILY [facility] Divalproex Sodium 250 mg 08/11/17 22:00 08/11/17 21:25 Depakote - PO 250 mg TID YAKOV Administration Duloxetine HCl 60 mg 08/12/17 10:00 Cymbalta - PO DAILY [facility] Fentanyl 1 patch 08/13/17 10:00 Duragesic 75mcg Patch - TD Q72H [facility] Furosemide 40 mg 08/12/17 06:00 Lasix Injection - IVPB BID@0600,1400 [facility] Heparin Sodium (Porcine) 5,000 unit 08/12/17 02:00 08/12/17 01:06 Heparin - SQ 5,000 unit Q8H-IV YAKOV Administration Ceftriaxone Sodium 1 gm/ 50 mls @ 100 mls/hr 08/12/17 10:00 Dextrose IVPB DAILY [facility] Levothyroxine Sodium 50 mcg 08/12/17 07:00 Synthroid - PO DAILY@0700 [facility] Miscellaneous 1 each 08/11/17 19:18 Duragesic Patch Waste TD PRN PRN PATCH REMOVAL Miscellaneous 1 each 08/11/17 19:18 Duragesic Patch Waste MC PRN PRN PAIN Nystatin 1 applic 08/11/17 22:00 08/11/17 21:25 Mycostatin Ointment - TP 1 applic TID [facility] Administration Pantoprazole Sodium 40 mg 08/12/17 10:00 Protonix - PO DAILY [facility] Polyethylene Glycol 17 gm 08/12/17 10:00 Miralax (For Daily Use) - PO DAILY [facility] Senna 2 tab 08/11/17 22:00 08/11/17 21:25 Senna - PO 2 tab HS YAKOV Administration ASSESSMENT/PLAN: Neuro: Advanced dementia --Currently decreased lucidity today, but remains oriented to self only Respiratory: Decreased lucidity --Will order ABG Maintain SpO2 >90% Duoneb PRN for shortness of breath if needed CXR today remains unchanged Cardiovascular: High grade Type II AV block --Bradycardic improved to mid 40's to low 50's --Discussed with cardiology how he wouldn't recommend PPM at this point due to advanced age and dementia, hemodynamic stability, and baseline HR. Discussed with family and in agreement. --Cardiology on board --Hold beta-blocking medications due to bradycardia Acute heart failure with volume overload --Continue BiPap as needed --Lasix 40 IVP BID --Maintain samayoa for accurate I&O's Hypertensive Emergency --Resolved --off of nitro gtt --Continue to monitor BP --Continue Norvasc 5mg PO Renal: Not in renal failure ID: UTI --Rocephin 1gm currently --F/u cultures; urine and blood --Tylenol PRN for fevers FEN: Fluids: avoid due to overload Electrolyte abnormalities: None today Nutrition: Sodium-controlled diet PPX DVT - Heparin SQ Dispo: Transfer to [facility] remains in place Case discussed with Dr. Dwight Mcmillan, DO - IM PGY-1 Visit type - Emergency Visit Emergency Visit: No - New Patient This patient is new to me today: No - Critical Care Critical Care patient: No
[2017-08-12] MEDS: LEVOTHYROXINE NA 50 MCG TABLET (FP) PO SCH (06:27)
[2017-08-12] MEDS: FUROSEMIDE 40 MG/4 ML INJECTABLE VIAL IVPB SCH ×2 (06:27→13:44)
[2017-08-12] MEDS: DIVALPROEX SODIUM 250 MG TABLET E.C. PO SCH ×3 (06:27→13:57)
[2017-08-12] MEDS: NYSTATIN 100000 UNIT/GM TOPICAL OINTMENT 15 GM TUBE TP SCH ×3 (06:28→21:28)
[2017-08-12 06:33] LABS: HEMATOCRIT 32.5 % (32.4-45.2); HEMOGLOBIN 10.7 GM/dL (10.7-15.3); MCH 31.4 pg (25.7-33.7); MCHC 32.9 g/dl (32.0-36.0); MEAN CELL VOLUME 95.3 fl (80-96); MEAN PLT VOLUME 7.8 fl (7.5-11.1); PLATELET COUNT 271 K/MM3 (134-434); RBC 3.41 M/mm3 (3.60-5.2); RDW 14.7 % (11.6-15.6); WHITE BLOOD COUNT 6.1 K/mm3 (4.0-10.0)
[2017-08-12 06:57] LABS: ALBUMIN 2.1 g/dl (3.4-5.0); ANION GAP 11 (8-16); BLOOD UREA NITROGEN 50 mg/dL (7-18); CHLORIDE 107 mmol/L (98-107); CO2 28 mmol/L (21-32); GLUCOSE,RANDOM 123 mg/dL (74-106); SODIUM 146 mmol/L (136-145)
[2017-08-12 07:00] LABS: ALK PHOS 104 U/L (45-117); BILIRUBIN,TOTAL 0.4 mg/dL (0.2-1.0); CREATININE 2.1 mg/dL (0.55-1.02); PHOSPHOROUS 4.4 mg/dL (2.5-4.9); SGOT/AST 9 U/L (15-37); SGPT/ALT 9 U/L (12-78); TOT PROT 5.6 g/dl (6.4-8.2)
[2017-08-12] MEDS ORDERED: cefTRIAXone SODIUM 1 GM VIAL ONE (09:20)
[2017-08-12] MEDS ORDERED: DEXTROSE 5%-WATER - 50 ML IVPB ONE (09:21)
[2017-08-12] MEDS: amLODIPine BESYLATE 5 MG TABLET (FP) PO SCH (09:26)
[2017-08-12] MEDS: DULoxetine HCL 30 MG CAPSULE.DR (FP) PO SCH (09:26)
[2017-08-12] MEDS: PANTOPRAZOLE 40 MG TABLET (FP) PO SCH (09:26)
[2017-08-12] MEDS: POLYETHYLENE GLYCOL 3350 119 GM BTL PO SCH (09:29)
[2017-08-12] MEDS: CEFTRIAXONE 1 GM in DEXTROSE 5%-WATER - 50 ML IVPB SCH (10:30)
--- NOTE | 2017-08-12 11:08 | PN ---
Progress Note, Physician Chief Complaint: Comfortable in bed No respiratory distress History of Present Illness: This is an 86 year old female with a PMH of CKD, HLD, HTN, Dementia, Bipolar Disorder, and Diverticulosis. She was sent from the intermediate for respiratory distress. She was noted by EMS to be aturating in 80's, bradycardic to 40's. At presentation VS: BP 224/62, HR 42, RR 26 - patient alert to name, but disoriented. - Current Medication List Current Medications: Active Medications Albuterol/Ipratropium (Duoneb -) 1 amp NEB Q6H PRN PRN Reason: SHORTNESS OF BREATH Alprazolam (Xanax -) 0.25 mg PO BID PRN PRN Reason: ANXIETY Last Admin: 08/11/17 22:38 Dose: 0.25 mg Amlodipine Besylate (Norvasc -) 5 mg PO DAILY [facility] Last Admin: 08/12/17 09:26 Dose: 5 mg Divalproex Sodium (Depakote -) 250 mg PO TID [facility] Last Admin: 08/12/17 06:27 Dose: 250 mg Duloxetine HCl (Cymbalta -) 60 mg PO DAILY [facility] Last Admin: 08/12/17 09:26 Dose: 60 mg Fentanyl (Duragesic 75mcg Patch -) 1 patch TD Q72H [facility] Furosemide (Lasix Injection -) 40 mg IVPB BID@0600,1400 [facility] Last Admin: 08/12/17 06:27 Dose: 40 mg Heparin Sodium (Porcine) (Heparin -) 5,000 unit SQ Q8H-IV [facility] Last Admin: 08/12/17 09:25 Dose: 5,000 unit Ceftriaxone Sodium 1 gm/ (Dextrose) 50 mls @ 100 mls/hr IVPB DAILY [facility] Last Admin: 08/12/17 10:30 Dose: 100 mls/hr Levothyroxine Sodium (Synthroid -) 50 mcg PO DAILY@0700 [facility] Last Admin: 08/12/17 06:27 Dose: 50 mcg Miscellaneous (Duragesic Patch Waste) 1 each TD PRN PRN PRN Reason: PATCH REMOVAL Miscellaneous (Duragesic Patch Waste) 1 each MC PRN PRN PRN Reason: PAIN Nystatin (Mycostatin Ointment -) 1 applic TP TID [facility] Last Admin: 08/12/17 06:28 Dose: 1 applic Pantoprazole Sodium (Protonix -) 40 mg PO DAILY [facility] Last Admin: 08/12/17 09:26 Dose: 40 mg Polyethylene Glycol (Miralax (For Daily Use) -) 17 gm PO DAILY [facility] Last Admin: 08/12/17 09:29 Dose: 17 grams Senna (Senna -) 2 tab PO HS [facility] Last Admin: 08/11/17 21:25 Dose: 2 tab - Objective Vital Signs: Vital Signs Temperature 98.9 F 08/12/17 10:00 Pulse Rate 47 L 08/12/17 10:00 Respiratory Rate 20 08/12/17 10:00 Blood Pressure 170/56 08/12/17 10:00 O2 Sat by Pulse Oximetry (%) 99 08/12/17 08:00 Constitutional: Yes: No Distress Neck: Yes: Supple Cardiovascular: Yes: Bradycardia, JVD, S1, S2 Respiratory: Yes: Diminished Edema: LLE: 1+, RLE: 1+ Labs: CBC, BMP 08/12/17 06:20 08/12/17 06:20 INR, PTT INR 1.00 (0.82-1.09) 08/10/17 05:20 Problem List - Problems (1) Bradycardia Code(s): R00.1 - BRADYCARDIA, UNSPECIFIED Assessment/Plan This is an 86 year old female with a PMH of CKD, HLD, HTN, Dementia, Bipolar Disorder, and Diverticulosis. She was sent from the intermediate for respiratory distress. She was noted by EMS to be aturating in 80's, bradycardic and hypertensive 1) CHF CXR unchanged LE edema improved -Diuresing with furosemide 40mg IV q12 Monitor I/O's and lytes and treat K as needed. 2) Bradycardia Will continue to monitor Stable with htn Has been yonatan since 2016 In heart block on tele No av merle blocking agents TSH normal Increase amlodipine to 7.5mg if needed today for better bp control 3) ID Abx as per primary team
--- NOTE | 2017-08-12 11:35 | PN ---
Teaching Attending Note Name of Resident: Justin Mcmillan ATTENDING PHYSICIAN STATEMENT I saw and evaluated the patient. I reviewed the resident's note and discussed the case with the resident. I agree with the resident's findings and plan as documented. SUBJECTIVE: Pt seen and examined in the ICU. Not answering questions. Saturating well on nasal cannula. Remains bradycardic. OBJECTIVE: Last Vital Signs Temp Pulse Resp BP Pulse Ox 98.9 F 47 L 20 170/56 99 08/12/17 10:00 08/12/17 10:00 08/12/17 10:00 08/12/17 10:00 08/12/17 08:00 Intake & Output 08/09/17 08/10/17 08/11/17 08/12/17 23:59 23:59 23:59 23:59 Intake Total 12 602 520 240 Output Total 850 1750 1300 400 Balance -838 -1148 -780 -160 Weight 95.844 kg 95.436 kg 90.7 kg 89.896 kg Gen: mildly tachypneic at rest Heart: bradycardic Lung: scattered rhonchi Abd: soft, nontender Ext: + edema CBC, BMP 08/12/17 06:20 08/12/17 06:20 Active Medications Albuterol/Ipratropium (Duoneb -) 1 amp NEB Q6H PRN PRN Reason: SHORTNESS OF BREATH Alprazolam (Xanax -) 0.25 mg PO BID PRN PRN Reason: ANXIETY Last Admin: 08/11/17 22:38 Dose: 0.25 mg Amlodipine Besylate (Norvasc -) 5 mg PO DAILY [facility] Last Admin: 08/12/17 09:26 Dose: 5 mg Divalproex Sodium (Depakote -) 250 mg PO TID [facility] Last Admin: 08/12/17 06:27 Dose: 250 mg Duloxetine HCl (Cymbalta -) 60 mg PO DAILY [facility] Last Admin: 08/12/17 09:26 Dose: 60 mg Fentanyl (Duragesic 75mcg Patch -) 1 patch TD Q72H [facility] Furosemide (Lasix Injection -) 40 mg IVPB BID@0600,1400 [facility] Last Admin: 08/12/17 06:27 Dose: 40 mg Heparin Sodium (Porcine) (Heparin -) 5,000 unit SQ Q8H-IV [facility] Last Admin: 08/12/17 09:25 Dose: 5,000 unit Ceftriaxone Sodium 1 gm/ (Dextrose) 50 mls @ 100 mls/hr IVPB DAILY [facility] Last Admin: 08/12/17 10:30 Dose: 100 mls/hr Levothyroxine Sodium (Synthroid -) 50 mcg PO DAILY@0700 [facility] Last Admin: 08/12/17 06:27 Dose: 50 mcg Miscellaneous (Duragesic Patch Waste) 1 each TD PRN PRN PRN Reason: PATCH REMOVAL Miscellaneous (Duragesic Patch Waste) 1 each MC PRN PRN PRN Reason: PAIN Nystatin (Mycostatin Ointment -) 1 applic TP TID [facility] Last Admin: 08/12/17 06:28 Dose: 1 applic Pantoprazole Sodium (Protonix -) 40 mg PO DAILY [facility] Last Admin: 08/12/17 09:26 Dose: 40 mg Polyethylene Glycol (Miralax (For Daily Use) -) 17 gm PO DAILY [facility] Last Admin: 08/12/17 09:29 Dose: 17 grams Senna (Senna -) 2 tab PO HS [facility] Last Admin: 08/11/17 21:25 Dose: 2 tab ASSESSMENT AND PLAN: Acute Hypoxic and Hypercapneic Respiratory Failure Bradycardia AV Block Hypertensive Urgency Acute Pulmonary Edema Acute Kidney Injury UTI Hyperkalemia - continue IV lasix - monitor urine output, creatinine - O2 to keep SpO2 >90% - BiPAP as needed - continue antibiotics - monitor lytes - hold all rate controlling agents - upon review of chart pt has been documented to be bradycardic to 30-40s in May 2015 - can monitor on telemetry critical care time spent in reviewing chart, evaluating patient and formulating plan 35 min
--- NOTE | 2017-08-12 11:59 | PN ---
Progress Note, Physician History of Present Illness: Pt with advanced dementia, not able to provide ROS today. Pt was seen and evaluated in ICU. - Current Medication List Current Medications: Active Medications Albuterol/Ipratropium (Duoneb -) 1 amp NEB Q6H PRN PRN Reason: SHORTNESS OF BREATH Alprazolam (Xanax -) 0.25 mg PO BID PRN PRN Reason: ANXIETY Last Admin: 08/11/17 22:38 Dose: 0.25 mg Amlodipine Besylate (Norvasc -) 5 mg PO DAILY [facility] Last Admin: 08/12/17 09:26 Dose: 5 mg Divalproex Sodium (Depakote -) 250 mg PO TID [facility] Last Admin: 08/12/17 06:27 Dose: 250 mg Duloxetine HCl (Cymbalta -) 60 mg PO DAILY [facility] Last Admin: 08/12/17 09:26 Dose: 60 mg Fentanyl (Duragesic 75mcg Patch -) 1 patch TD Q72H [facility] Furosemide (Lasix Injection -) 40 mg IVPB BID@0600,1400 [facility] Last Admin: 08/12/17 06:27 Dose: 40 mg Heparin Sodium (Porcine) (Heparin -) 5,000 unit SQ Q8H-IV [facility] Last Admin: 08/12/17 09:25 Dose: 5,000 unit Ceftriaxone Sodium 1 gm/ (Dextrose) 50 mls @ 100 mls/hr IVPB DAILY [facility] Last Admin: 08/12/17 10:30 Dose: 100 mls/hr Levothyroxine Sodium (Synthroid -) 50 mcg PO DAILY@0700 [facility] Last Admin: 08/12/17 06:27 Dose: 50 mcg Miscellaneous (Duragesic Patch Waste) 1 each TD PRN PRN PRN Reason: PATCH REMOVAL Miscellaneous (Duragesic Patch Waste) 1 each MC PRN PRN PRN Reason: PAIN Nystatin (Mycostatin Ointment -) 1 applic TP TID [facility] Last Admin: 08/12/17 06:28 Dose: 1 applic Pantoprazole Sodium (Protonix -) 40 mg PO DAILY [facility] Last Admin: 08/12/17 09:26 Dose: 40 mg Polyethylene Glycol (Miralax (For Daily Use) -) 17 gm PO DAILY [facility] Last Admin: 08/12/17 09:29 Dose: 17 grams Senna (Senna -) 2 tab PO HS [facility] Last Admin: 08/11/17 21:25 Dose: 2 tab - Objective Vital Signs: Vital Signs Temperature 99.5 F 08/12/17 10:00 Pulse Rate 47 L 08/12/17 10:00 Respiratory Rate 20 08/12/17 10:00 Blood Pressure 170/56 08/12/17 10:00 O2 Sat by Pulse Oximetry (%) 99 08/12/17 08:00 Constitutional: Yes: No Distress, Calm Cardiovascular: Yes: Bradycardia, S1, S2 Respiratory: Yes: Regular, Rales (at bases, possible atlectasis) Gastrointestinal: Yes: Normal Bowel Sounds, Soft. No: Palpable Mass, Tenderness Edema: Yes Edema: LLE: 1+, RLE: 1+ Neurological: Yes: Alert Labs: CBC, BMP 08/12/17 06:20 08/12/17 06:20 INR, PTT INR 1.00 (0.82-1.09) 08/10/17 05:20 Problem List - Problems (1) Acute respiratory failure with hypoxia and hypercapnia Code(s): J96.01 - ACUTE RESPIRATORY FAILURE WITH HYPOXIA; J96.02 - ACUTE RESPIRATORY FAILURE WITH HYPERCAPNIA (2) Bradycardia Code(s): R00.1 - BRADYCARDIA, UNSPECIFIED (3) Hyperkalemia Code(s): E87.5 - HYPERKALEMIA (4) Heart failure Code(s): I50.9 - HEART FAILURE, UNSPECIFIED (5) Dementia Code(s): F03.90 - UNSPECIFIED DEMENTIA WITHOUT BEHAVIORAL DISTURBANCE (6) CRI (chronic renal insufficiency) Code(s): N18.9 - CHRONIC KIDNEY DISEASE, UNSPECIFIED Qualifiers: Chronic kidney disease stage: stage 3 (moderate) Qualified Code(s): N18.3 - Chronic kidney disease, stage 3 (moderate) (7) UTI (urinary tract infection) Code(s): N39.0 - URINARY TRACT INFECTION, SITE NOT SPECIFIED (8) Stage 4 pressure ulcer Code(s): L89.94 - PRESSURE ULCER OF UNSPECIFIED SITE, STAGE 4 Qualifiers: Pressure ulcer location: sacral region Qualified Code(s): L89.154 - Pressure ulcer of sacral region, stage 4 (9) Anxiety Code(s): F41.9 - ANXIETY DISORDER, UNSPECIFIED (10) Hypernatremia Assessment/Plan: to encourage free water intake, change all IV bags to 1/2 ns Code(s): E87.0 - HYPEROSMOLALITY AND HYPERNATREMIA Assessment/Plan IV Lasix IV Ceftriaxone. Monitor I/O( negative), creatinine (stable). CCM, Cardio, ID consults appreciated. To continue Telemetry monitoring, Bradycardia is documented since 2016; Cardio to decide if PPM would be recommended. PRN Xanax for anxiety Case was d/w pt's nurse (Adele Wolf). Case was d/w Dr. Quintanilla I called and pt's condition was reviewed with pt's HCP, all questions were answered. Time spent for managing pt's care: over [address] Rivera.
[2017-08-12] MEDS: VALPROATE SODIUM 250 MG/5 ML UNIT DOSE CUP PO SCH ×2 (17:51→21:26)
[2017-08-12] MEDS: SENNOSIDES 8.6MG TABLET (FP) PO SCH (21:26)
[2017-08-13] MEDS: HEPARIN NA (PORCINE) 5,000 UNITS/ML 1ML VIAL SQ SCH ×2 (03:35→09:12)
[2017-08-13] MEDS: VALPROATE SODIUM 250 MG/5 ML UNIT DOSE CUP PO SCH ×3 (06:02→21:33)
[2017-08-13] MEDS: FUROSEMIDE 40 MG/4 ML INJECTABLE VIAL IVPB SCH ×2 (06:02→14:12)
[2017-08-13] MEDS: LEVOTHYROXINE NA 50 MCG TABLET (FP) PO SCH (06:03)
[2017-08-13] MEDS: NYSTATIN 100000 UNIT/GM TOPICAL OINTMENT 15 GM TUBE TP SCH ×3 (06:04→21:33)
[2017-08-13 06:46] LABS: CHLORIDE 111 mmol/L (98-107); HEMATOCRIT 28.5 % (32.4-45.2); HEMOGLOBIN 9.8 GM/dL (10.7-15.3); MCH 32.3 pg (25.7-33.7); MCHC 34.4 g/dl (32.0-36.0); MEAN CELL VOLUME 93.8 fl (80-96); MEAN PLT VOLUME 8.1 fl (7.5-11.1); PLATELET COUNT 224 K/MM3 (134-434); POTASSIUM 3.9 mmol/L (3.5-5.1); RBC 3.03 M/mm3 (3.60-5.2); RDW 14.2 % (11.6-15.6); SODIUM 146 mmol/L (136-145); WHITE BLOOD COUNT 5.7 K/mm3 (4.0-10.0)
[2017-08-13 06:50] LABS: ANION GAP 5 (8-16); BLOOD UREA NITROGEN 50 mg/dL (7-18); CALCIUM 7.3 mg/dL (8.5-10.1); CO2 30 mmol/L (21-32); CREATININE 2.2 mg/dL (0.55-1.02); GLUCOSE,RANDOM 111 mg/dL (74-106)
[2017-08-13] MEDS ORDERED: cefTRIAXone SODIUM 1 GM VIAL ONE ×3 (08:43→09:09)
[2017-08-13] MEDS ORDERED: DEXTROSE 5%-WATER - 50 ML IVPB ONE ×2 (08:44→09:09)
[2017-08-13] MEDS: CEFTRIAXONE 1 GM in DEXTROSE 5%-WATER - 50 ML IVPB SCH (09:11)
[2017-08-13] MEDS: DULoxetine HCL 30 MG CAPSULE.DR (FP) PO SCH (09:12)
[2017-08-13] MEDS: PANTOPRAZOLE 40 MG TABLET (FP) PO SCH (09:12)
[2017-08-13] MEDS: amLODIPine BESYLATE 5 MG TABLET (FP) PO SCH (09:12)
[2017-08-13] MEDS: POLYETHYLENE GLYCOL 3350 119 GM BTL PO SCH (09:13)
[2017-08-13] MEDS ORDERED: fentaNYL 75mcg/hr PATCH.TD72 TD SCH (10:00)
--- NOTE | 2017-08-13 10:07 | PN ---
Progress Note, Physician History of Present Illness: Pt with advanced dementia, not able to provide ROS today. Case was reviewed with pt's nurse. - Current Medication List Current Medications: Active Medications Albuterol/Ipratropium (Duoneb -) 1 amp NEB Q6H PRN PRN Reason: SHORTNESS OF BREATH Alprazolam (Xanax -) 0.25 mg PO BID PRN PRN Reason: ANXIETY Last Admin: 08/11/17 22:38 Dose: 0.25 mg Amlodipine Besylate (Norvasc -) 5 mg PO DAILY [facility] Last Admin: 08/13/17 09:12 Dose: 5 mg Duloxetine HCl (Cymbalta -) 60 mg PO DAILY [facility] Last Admin: 08/13/17 09:12 Dose: 60 mg Fentanyl (Duragesic 75mcg Patch -) 1 patch TD Q72H [facility] Last Admin: 08/13/17 09:11 Dose: 1 patch Furosemide (Lasix Injection -) 40 mg IVPB BID@0600,1400 [facility] Last Admin: 08/13/17 06:02 Dose: 40 mg Heparin Sodium (Porcine) (Heparin -) 5,000 unit SQ Q8H-IV [facility] Last Admin: 08/13/17 09:12 Dose: 5,000 unit Ceftriaxone Sodium 1 gm/ (Dextrose) 50 mls @ 100 mls/hr IVPB DAILY [facility] Last Admin: 08/13/17 09:11 Dose: 100 mls/hr Levothyroxine Sodium (Synthroid -) 50 mcg PO DAILY@0700 [facility] Last Admin: 08/13/17 06:03 Dose: 50 mcg Miscellaneous (Duragesic Patch Waste) 1 each TD PRN PRN PRN Reason: PATCH REMOVAL Miscellaneous (Duragesic Patch Waste) 1 each MC PRN PRN PRN Reason: PAIN Nystatin (Mycostatin Ointment -) 1 applic TP TID [facility] Last Admin: 08/13/17 06:04 Dose: 1 applic Pantoprazole Sodium (Protonix -) 40 mg PO DAILY [facility] Last Admin: 08/13/17 09:12 Dose: 40 mg Polyethylene Glycol (Miralax (For Daily Use) -) 17 gm PO DAILY [facility] Last Admin: 08/13/17 09:13 Dose: 17 grams Senna (Senna -) 2 tab PO HS [facility] Last Admin: 08/12/17 21:26 Dose: 2 tab Valproate Sodium (Depakene -) 250 mg PO TID [facility] Last Admin: 08/13/17 06:02 Dose: 250 mg - Objective Vital Signs: Vital Signs Temperature 99 F 08/13/17 05:00 Pulse Rate 44 L 08/13/17 05:00 Respiratory Rate 18 08/13/17 05:00 Blood Pressure 103/60 08/13/17 05:00 O2 Sat by Pulse Oximetry (%) 97 08/12/17 21:00 Constitutional: Yes: No Distress, Calm Cardiovascular: Yes: Regular Rate and Rhythm, Bradycardia, S1, S2 Respiratory: Yes: Regular, CTA Bilaterally Gastrointestinal: Yes: Normal Bowel Sounds, Soft. No: Tenderness Edema: LLE: 1+, RLE: 1+ Neurological: Yes: Alert Labs: CBC, BMP 08/13/17 05:10 08/13/17 05:10 INR, PTT INR 1.00 (0.82-1.09) 08/10/17 05:20 Problem List - Problems (1) Acute respiratory failure with hypoxia and hypercapnia Code(s): J96.01 - ACUTE RESPIRATORY FAILURE WITH HYPOXIA; J96.02 - ACUTE RESPIRATORY FAILURE WITH HYPERCAPNIA (2) Bradycardia Code(s): R00.1 - BRADYCARDIA, UNSPECIFIED (3) Hyperkalemia Code(s): E87.5 - HYPERKALEMIA (4) Heart failure Code(s): I50.9 - HEART FAILURE, UNSPECIFIED (5) Dementia Code(s): F03.90 - UNSPECIFIED DEMENTIA WITHOUT BEHAVIORAL DISTURBANCE (6) CRI (chronic renal insufficiency) Code(s): N18.9 - CHRONIC KIDNEY DISEASE, UNSPECIFIED Qualifiers: Chronic kidney disease stage: stage 3 (moderate) Qualified Code(s): N18.3 - Chronic kidney disease, stage 3 (moderate) (7) UTI (urinary tract infection) Code(s): N39.0 - URINARY TRACT INFECTION, SITE NOT SPECIFIED (8) Stage 4 pressure ulcer Code(s): L89.94 - PRESSURE ULCER OF UNSPECIFIED SITE, STAGE 4 Qualifiers: Pressure ulcer location: sacral region Qualified Code(s): L89.154 - Pressure ulcer of sacral region, stage 4 (9) Anxiety Code(s): F41.9 - ANXIETY DISORDER, UNSPECIFIED (10) Hypernatremia Code(s): E87.0 - HYPEROSMOLALITY AND HYPERNATREMIA Assessment/Plan IV Lasix IV Ceftriaxone. Monitor I/O( negative), creatinine (slightly up). CCM, Cardio, ID consults appreciated. To continue Telemetry monitoring, Bradycardia is documented since 2016; Cardio to decide if PPM would be recommended. PRN Xanax for anxiety Case was d/w pt's nurse ([facility]). Covering Dr. Rivera.
[2017-08-13] MEDS ORDERED: PT OWN MED DRAWER 7, Y5N ONE (14:07)
--- NOTE | 2017-08-13 14:07 | PN ---
Progress Note, Physician Chief Complaint: Comfortable in bed No respiratory distress History of Present Illness: This is an 86 year old female with a PMH of CKD, HLD, HTN, Dementia, Bipolar Disorder, and Diverticulosis. She was sent from the [facility] for respiratory distress. She was noted by EMS to be aturating in 80's, bradycardic to 40's. At presentation VS: BP 224/62, HR 42, RR 26 - patient alert to name, but disoriented. - Current Medication List Current Medications: Active Medications Albuterol/Ipratropium (Duoneb -) 1 amp NEB Q6H PRN PRN Reason: SHORTNESS OF BREATH Alprazolam (Xanax -) 0.25 mg PO BID PRN PRN Reason: ANXIETY Last Admin: 08/11/17 22:38 Dose: 0.25 mg Amlodipine Besylate (Norvasc -) 5 mg PO DAILY [facility] Last Admin: 08/13/17 09:12 Dose: 5 mg Duloxetine HCl (Cymbalta -) 60 mg PO DAILY [facility] Last Admin: 08/13/17 09:12 Dose: 60 mg Fentanyl (Duragesic 75mcg Patch -) 1 patch TD Q72H [facility] Last Admin: 08/13/17 09:11 Dose: 1 patch Furosemide (Lasix Injection -) 40 mg IVPB BID@0600,1400 [facility] Last Admin: 08/13/17 06:02 Dose: 40 mg Heparin Sodium (Porcine) (Heparin -) 5,000 unit SQ Q8H-IV [facility] Last Admin: 08/13/17 09:12 Dose: 5,000 unit Ceftriaxone Sodium 1 gm/ (Dextrose) 50 mls @ 100 mls/hr IVPB DAILY [facility] Last Admin: 08/13/17 09:11 Dose: 100 mls/hr Levothyroxine Sodium (Synthroid -) 50 mcg PO DAILY@0700 [facility] Last Admin: 08/13/17 06:03 Dose: 50 mcg Miscellaneous (Duragesic Patch Waste) 1 each TD PRN PRN PRN Reason: PATCH REMOVAL Miscellaneous (Duragesic Patch Waste) 1 each MC PRN PRN PRN Reason: PAIN Nystatin (Mycostatin Ointment -) 1 applic TP TID [facility] Last Admin: 08/13/17 06:04 Dose: 1 applic Pantoprazole Sodium (Protonix -) 40 mg PO DAILY [facility] Last Admin: 08/13/17 09:12 Dose: 40 mg Polyethylene Glycol (Miralax (For Daily Use) -) 17 gm PO DAILY [facility] Last Admin: 08/13/17 09:13 Dose: 17 grams Senna (Senna -) 2 tab PO HS [facility] Last Admin: 08/12/17 21:26 Dose: 2 tab Valproate Sodium (Depakene -) 250 mg PO TID [facility] Last Admin: 08/13/17 06:02 Dose: 250 mg - Objective Vital Signs: Vital Signs Temperature 99.7 F H 08/13/17 14:02 Pulse Rate 56 L 08/13/17 14:02 Respiratory Rate 18 08/13/17 14:02 Blood Pressure 142/47 08/13/17 14:02 O2 Sat by Pulse Oximetry (%) 97 08/13/17 09:00 Constitutional: Yes: No Distress Cardiovascular: Yes: Bradycardia, S1, S2 Respiratory: Yes: Diminished Gastrointestinal: Yes: Soft Edema: LLE: 1+, RLE: 1+ Labs: CBC, BMP 08/13/17 05:10 08/13/17 05:10 INR, PTT INR 1.00 (0.82-1.09) 08/10/17 05:20 Problem List - Problems (1) Bradycardia Code(s): R00.1 - BRADYCARDIA, UNSPECIFIED Assessment/Plan This is an 86 year old female with a PMH of CKD, HLD, HTN, Dementia, Bipolar Disorder, and Diverticulosis. She was sent from the [facility] for respiratory distress. She was noted by EMS to be aturating in 80's, bradycardic and hypertensive 1) CHF CXR unchanged LE edema improved -Diuresing with furosemide 40mg IV q12 Monitor I/O's and lytes and treat K as needed. Would give another day of IV lasix and than change to PO 2) Bradycardia Stable with htn Has been yonatan with similar findings on ekg since 2016 In heart block on tele No av merle blocking agents TSH normal 3)HTN Amlodipine 5mg daily 3) ID Abx as per primary team Will sign off at this time. Please call back as needed
--- NOTE | 2017-08-13 15:10 | PN ---
Progress Note (short form) - Note Progress Note: Appears comfortable on NC O2. Noted episodes of Bradycardia. Intake & Output 08/10/17 08/11/17 08/12/17 08/13/17 23:59 23:59 23:59 23:59 Intake Total 602 520 900 Output Total 1750 1300 1400 700 Balance -1148 -780 -500 -700 Weight 210 lb 6.4 oz 199 lb 15.348 oz 198 lb 3 oz 207 lb Last Vital Signs Temp Pulse Resp BP Pulse Ox 99.7 F H 56 L 18 142/47 97 08/13/17 14:02 08/13/17 14:02 08/13/17 14:02 08/13/17 14:02 08/13/17 09:00 Active Medications Albuterol/Ipratropium (Duoneb -) 1 amp NEB Q6H PRN PRN Reason: SHORTNESS OF BREATH Alprazolam (Xanax -) 0.25 mg PO BID PRN PRN Reason: ANXIETY Last Admin: 08/11/17 22:38 Dose: 0.25 mg Amlodipine Besylate (Norvasc -) 5 mg PO DAILY [facility] Last Admin: 08/13/17 09:12 Dose: 5 mg Duloxetine HCl (Cymbalta -) 60 mg PO DAILY [facility] Last Admin: 08/13/17 09:12 Dose: 60 mg Fentanyl (Duragesic 75mcg Patch -) 1 patch TD Q72H [facility] Last Admin: 08/13/17 09:11 Dose: 1 patch Furosemide (Lasix Injection -) 40 mg IVPB BID@0600,1400 [facility] Last Admin: 08/13/17 14:12 Dose: 40 mg Heparin Sodium (Porcine) (Heparin -) 5,000 unit SQ Q8H-IV [facility] Last Admin: 08/13/17 09:12 Dose: 5,000 unit Ceftriaxone Sodium 1 gm/ (Dextrose) 50 mls @ 100 mls/hr IVPB DAILY [facility] Last Admin: 08/13/17 09:11 Dose: 100 mls/hr Levothyroxine Sodium (Synthroid -) 50 mcg PO DAILY@0700 [facility] Last Admin: 08/13/17 06:03 Dose: 50 mcg Miscellaneous (Duragesic Patch Waste) 1 each TD PRN PRN PRN Reason: PATCH REMOVAL Miscellaneous (Duragesic Patch Waste) 1 each MC PRN PRN PRN Reason: PAIN Nystatin (Mycostatin Ointment -) 1 applic TP TID [facility] Last Admin: 08/13/17 14:12 Dose: 1 applic Pantoprazole Sodium (Protonix -) 40 mg PO DAILY [facility] Last Admin: 08/13/17 09:12 Dose: 40 mg Polyethylene Glycol (Miralax (For Daily Use) -) 17 gm PO DAILY [facility] Last Admin: 08/13/17 09:13 Dose: 17 grams Senna (Senna -) 2 tab PO HS [facility] Last Admin: 08/12/17 21:26 Dose: 2 tab Valproate Sodium (Depakene -) 250 mg PO TID [facility] Last Admin: 08/13/17 14:10 Dose: 250 mg Gen: Awake, NAD Heart: S1S2, bradycardic Lung: scattered rhonchi Abd: soft, nontender Ext: + edema ASSESSMENT AND PLAN: Acute Hypoxic and Hypercapneic Respiratory Failure Bradycardia AV Block Hypertensive Urgency Acute Pulmonary Edema Acute Kidney Injury UTI Hyperkalemia - Lasix - O2 to keep SpO2 >90% - NIPPV as needed - ABX - Hold all rate controlling agents - Monitor bradycardia - can monitor on telemetry Dr Milton
[2017-08-13] MEDS: SENNOSIDES 8.6MG TABLET (FP) PO SCH (21:33)
[2017-08-14] MEDS: HEPARIN NA (PORCINE) 5,000 UNITS/ML 1ML VIAL SQ SCH ×3 (02:10→09:42)
[2017-08-14 06:11] VITALS: TEMP 98.9
[2017-08-14] MEDS: VALPROATE SODIUM 250 MG/5 ML UNIT DOSE CUP PO SCH (06:19)
[2017-08-14] MEDS: FUROSEMIDE 40 MG/4 ML INJECTABLE VIAL IVPB SCH (06:19)
[2017-08-14] MEDS: NYSTATIN 100000 UNIT/GM TOPICAL OINTMENT 15 GM TUBE TP SCH (06:20)
[2017-08-14] MEDS: LEVOTHYROXINE NA 50 MCG TABLET (FP) PO SCH (06:21)
--- NOTE | 2017-08-14 06:41 | PN ---
Progress Note (short form) - Note Progress Note: Coverage on 08/11-08/12/17 appreciated. The patient is awake, alert, her MS at the baseline. Breathing RA comfortably. No plans for PPM for this elderly lady with advanced dementia, asymptomatic and requiring total ADL care. Patient is DNR/DNI Vital Signs Temp 98.9 F 08/14/17 06:00 Pulse 53 L 08/14/17 06:00 Resp 20 08/14/17 06:00 BP 130/65 08/14/17 06:00 Pulse Ox 95 08/14/17 06:00 Intake & Output 08/13/17 08/13/17 08/14/17 11:59 23:59 11:59 Intake Total 350 210 Output Total 300 800 Balance -300 -450 210 Weight 207 lb Intake: IV 60 10 S/L 60 10 IVPB 50 Oral 240 200 Output: Urine 300 800 Davis 300 800 Other: Voiding Method Indwelling Catheter Indwelling Catheter Indwelling Catheter Bowel Movement No No # Bowel Movements 0 Weight Measurement Method Patient Lift Scale Neck-no JVD Lungs are Clear. Heart S1S2 [id number] 3 degree AV block abdomen soft, NT, Davis for neurogenic bladder Ext-no CCE Sacral ulcer stage 3 Laboratory Results - last 24 hr 08/13/17 08/13/17 05:10 05:10 WBC 5.7 RBC 3.03 L Hgb 9.8 L Hct 28.5 L MCV 93.8 MCH 32.3 MCHC 34.4 RDW 14.2 Plt Count 224 MPV 8.1 Sodium 146 H Potassium 3.9 Chloride 111 H Carbon Dioxide 30 Anion Gap 5 L BUN 50 H Creatinine 2.2 H Random Glucose 111 H Calcium 7.3 L Current Active Problems Problem Status Onset Acute respiratory failure with hypoxia Acute Acute respiratory failure with hypoxia and hypercapnia Acute Anxiety Acute Bradycardia Acute CKD (chronic kidney disease) Acute Chronic kidney disease, stage 4, severely decreased GFR Acute Congestive heart failure Acute Dementia Acute Heart failure Acute Hyperkalemia Acute Hypernatremia Acute Hypertensive emergency Acute Stage 4 pressure ulcer Acute UTI (urinary tract infection) Acute Plan D/c iv Abx D/c to [facility] Continue comfort care, wound care. 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 Avoid meds with negative chronotropic action. Supplemental O2PRN Problem List - Problems (1) Acute respiratory failure with hypoxia Code(s): J96.01 - ACUTE RESPIRATORY FAILURE WITH HYPOXIA (2) Hyperkalemia Code(s): E87.5 - HYPERKALEMIA (3) CRI (chronic renal insufficiency) Code(s): N18.9 - CHRONIC KIDNEY DISEASE, UNSPECIFIED Qualifiers: Chronic kidney disease stage: stage 3 (moderate) Qualified Code(s): N18.3 - Chronic kidney disease, stage 3 (moderate) (4) Bradycardia Code(s): R00.1 - BRADYCARDIA, UNSPECIFIED (5) Stage 4 pressure ulcer Code(s): L89.94 - PRESSURE ULCER OF UNSPECIFIED SITE, STAGE 4 Qualifiers: Pressure ulcer location: sacral region Qualified Code(s): L89.154 - Pressure ulcer of sacral region, stage 4
--- NOTE | 2017-08-14 06:49 | DS ---
Physical Examination Vital Signs: Vital Signs Temperature 98.9 F 08/14/17 06:00 Pulse Rate 53 L 08/14/17 06:00 Respiratory Rate 20 08/14/17 06:00 Blood Pressure 130/65 08/14/17 06:00 O2 Sat by Pulse Oximetry (%) 95 08/14/17 06:00 Constitutional: Yes: No Distress, Anxious Eyes: Yes: Conjunctiva Clear, EOM Intact HENT: Yes: Atraumatic, Normocephalic Neck: Yes: Supple, Trachea Midline. No: Decreased ROM Cardiovascular: Yes: Bradycardia, Pulse Irregular, S1, S2. No: JVD, Rub Respiratory: Yes: Regular, On Nasal O2. No: Bradypnea, Rales, Rhonchi, SOB Gastrointestinal: Yes: Normal Bowel Sounds, Soft. No: Abdomen, Obese, Ascites, Palpable Mass, Tenderness ...Rectal Exam: Yes: Deferred Renal/: Yes: Davis Present. No: Anuria, Bladder Distention Extremities: Yes: WNL Edema: Yes Edema: LLE: 1+, RLE: 1+ Peripheral Pulses WNL: No Integumentary: Yes: Pressure Ulcer (Sacrum stage 4) Neurological: Yes: Alert. No: Oriented, Aphasia, Dysarthria, Seizure, Unresponsive Psychiatric: Yes: Alert. No: Oriented, Suicidal Ideation Labs: CBC, BMP 08/13/17 05:10 08/13/17 05:10 Discharge Summary Reason For Visit: PLUERAL EFFUSION, CHF, AVB 3rd degree, Current Active Problems Acute respiratory failure with hypoxia (Acute) Acute respiratory failure with hypoxia and hypercapnia (Acute) Anxiety (Acute) Bradycardia (Acute) CKD (chronic kidney disease) (Acute) Chronic kidney disease, stage 4, severely decreased GFR (Acute) Congestive heart failure (Acute) Dementia (Acute) Heart failure (Acute) Hyperkalemia (Acute) Hypernatremia (Acute) Hypertensive emergency (Acute) Stage 4 pressure ulcer (Acute) UTI (urinary tract infection) (Acute) Condition: Guarded - Instructions Referrals: Toni Rivera MD [Primary Care Provider] - Disposition: [facility] - Home Medications Comprehensive Discharge Medication List: Ambulatory Orders Acetaminophen [Tylenol -] 1,000 mg PO BID 08/09/17 Ascorbic Acid [Vitamin C] 500 mg PO DAILY 08/09/17 Calcium Carbonate [Oyster Shell Calcium] 500 mg PO BID 08/09/17 Cholecalciferol (Vitamin D3) [Vitamin D3] 1,000 unit PO DAILY 08/09/17 Divalproex Sodium 250 mg PO TID 08/09/17 Duloxetine HCl 60 mg PO DAILY 08/09/17 FENTANYL 25mcg PATCH [DURAGESIC 25mcg PATCH -] 75 mcg TD Q72D 08/09/17 Levothyroxine [Synthroid -] 50 mcg PO DAILY 08/09/17 Multivit with Minerals No.55 [Centrum Flavor Burst Adult] 1 each PO DAILY Nystatin Ointment [Mycostatin Ointment -] 1 applic TP TID 08/09/17 Omeprazole 40 mg PO DAILY 08/09/17 Polyethylene Glycol 3350 [Miralax (For Daily Use) -] 17 gm PO DAILY 08/09/17 Sennosides [Senna] 2 tab PO HS 08/09/17
[2017-08-14 07:29] LABS: HEMATOCRIT 33.5 % (32.4-45.2); HEMOGLOBIN 10.7 GM/dL (10.7-15.3); MCH 30.4 pg (25.7-33.7); MCHC 31.8 g/dl (32.0-36.0); MEAN CELL VOLUME 95.4 fl (80-96); MEAN PLT VOLUME 8.1 fl (7.5-11.1); PLATELET COUNT 231 K/MM3 (134-434); RBC 3.51 M/mm3 (3.60-5.2); RDW 14.2 % (11.6-15.6); WHITE BLOOD COUNT 11.8 K/mm3 (4.0-10.0)
[2017-08-14 08:24] LABS: ANION GAP 7 (8-16); BILIRUBIN,TOTAL 0.2 mg/dL (0.2-1.0); BLOOD UREA NITROGEN 47 mg/dL (7-18); CALCIUM 7.8 mg/dL (8.5-10.1); CHLORIDE 108 mmol/L (98-107); CO2 31 mmol/L (21-32); CREATININE 2.1 mg/dL (0.55-1.02); GLUCOSE,RANDOM 123 mg/dL (74-106); POTASSIUM 3.6 mmol/L (3.5-5.1); SGOT/AST 6 U/L (15-37); SGPT/ALT 6 U/L (12-78); SODIUM 146 mmol/L (136-145); TOT PROT 5.4 g/dl (6.4-8.2)
[2017-08-14 08:25] LABS: ALK PHOS 99 U/L (45-117)
[2017-08-14] MEDS ORDERED: cefTRIAXone SODIUM 1 GM VIAL ONE (09:29)
[2017-08-14] MEDS: amLODIPine BESYLATE 5 MG TABLET (FP) PO SCH (09:42)
[2017-08-14] MEDS: CEFTRIAXONE 1 GM in DEXTROSE 5%-WATER - 50 ML IVPB SCH (09:42)
[2017-08-14] MEDS: POLYETHYLENE GLYCOL 3350 119 GM BTL PO SCH (09:42)
[2017-08-14] MEDS: DULoxetine HCL 30 MG CAPSULE.DR (FP) PO SCH (09:43)
[2017-08-14] MEDS: PANTOPRAZOLE 40 MG TABLET (FP) PO SCH (09:48)
[2017-08-14 11:13] VITALS: BP 156/84; PULSE 45
== END 2017-08-14 13:50 | DRG 291 ==
LOC: JER 10:45 → JERBED 12:35 → JICU 14:25 → J4W 08-12 15:25
PROVIDERS: ADMIT Internal Medicine; ATTEND Internal Medicine
PROC: 5A09457 Assistance with Respiratory Ventilation, 24-96 Consecutive Hours, Continuous Positive Airway Pressure (ICD-10-PCS; principal; 2017-08-09)
DX: I13.0 Hypertensive heart and chronic kidney disease with heart failure and stage 1 through stage 4 chronic kidney disease, or unspecified chronic kidney disease (principal); J96.01 Acute respiratory failure with hypoxia; L89.154 Pressure ulcer of sacral region, stage 4; J96.02 Acute respiratory failure with hypercapnia; J81.0 Acute pulmonary edema; G40.89 Other seizures; N17.9 Acute kidney failure, unspecified; N39.0 Urinary tract infection, site not specified; J98.11 Atelectasis; I48.92 Unspecified atrial flutter; I44.2 Atrioventricular block, complete; N18.4 Chronic kidney disease, stage 4 (severe); E87.0 Hyperosmolality and hypernatremia; I50.9 Heart failure, unspecified; E87.5 Hyperkalemia; I16.0 Hypertensive urgency; E11.22 Type 2 diabetes mellitus with diabetic chronic kidney disease; F31.9 Bipolar disorder, unspecified; F03.90 Unspecified dementia, unspecified severity, without behavioral disturbance, psychotic disturbance, mood disturbance, and anxiety; K57.30 Diverticulosis of large intestine without perforation or abscess without bleeding; E78.5 Hyperlipidemia, unspecified; Z86.73 Personal history of transient ischemic attack (TIA), and cerebral infarction without residual deficits; E78.00 Pure hypercholesterolemia, unspecified; Z66 Do not resuscitate; N31.9 Neuromuscular dysfunction of bladder, unspecified; Z74.01 Bed confinement status; G89.29 Other chronic pain; M54.5 Low back pain; I45.10 Unspecified right bundle-branch block; F41.9 Anxiety disorder, unspecified; R00.1 Bradycardia, unspecified
CPT/HCPCS: 36415; 71045-TC-FY; 80048; 80053; 81003; 81015; 82375; 82550; 82607; 82803; 83036; 83050; 83605; 83735; 83880; 84100; 84439; 84443; 84484; 85025; 85027; 85610; 85730; 86850; 86900; 86901; 87040; 87086; 87186; 93005; 93010; 93306-TC; 94660; 97161-GP; 99285-25; G0480; J1644